=== PATIENT | male | born 1935 | race Caucasian/White ===

== ENCOUNTER 2017-05-25 22:53 | Inpatient (IN) | payer MEDICARE ==
[~2017-05-25] VITALS: Ht 172.7 cm; Wt 84.4 kg
[2017-05-25] MEDS ORDERED: GABA300C PO (23:24)
[2017-05-25] MEDS ORDERED: LOSA100T3 PO (23:24)
[2017-05-25] MEDS ORDERED: TAMS-12 PO (23:24)
[2017-05-25] MEDS ORDERED: ALBU2.5V13 IH (23:24)
[2017-05-25] MEDS ORDERED: METF500T PO (23:24)
[2017-05-25] MEDS ORDERED: GLUC1KIT IM (23:24)
[2017-05-25] MEDS ORDERED: HUM10VIA5 SQ (23:24)
[2017-05-25] MEDS ORDERED: LORA-259 PO (23:24)
[2017-05-25] MEDS ORDERED: DONE5TAB7 PO (23:24)
[2017-05-25] MEDS ORDERED: IPRA0.2S9 IH (23:24)
[2017-05-25] MEDS ORDERED: MIRT15TA7 PO (23:24)
[2017-05-25] MEDS ORDERED: PANT20TA2 PO (23:24)
[2017-05-25] MEDS ORDERED: ATOR20TA PO (23:24)
[2017-05-26 00:15] LABS: BASOPHILS % (AUTO) 0.4 % (0.0-2.0); EOSINOPHILS # (AUTO) 0.1 /CMM (0.0-0.7); EOSINOPHILS % (AUTO) 1.8 % (0.0-6.0); HEMATOCRIT 31 % (39-51); HEMOGLOBIN 10.1 g/dL (13.5-17.5); LYMPHOCYTES # (AUTO) 2.5 /CMM (0.8-4.8); LYMPHOCYTES % (AUTO) 33.3 % (20.0-44.0); MEAN CORPUSCULAR HEMOGLOBIN 28 PG (26.0-33.0); MEAN CORPUSCULAR HGB CONC 32 g/dl (31.0-36.0); MEAN CORPUSCULAR VOLUME 87 fL (80-96); MONOCYTES # (AUTO) 0.4 /CMM (0.1-1.30); MONOCYTES % (AUTO) 5.6 % (2.0-12.0); NEUTROPHILS # (AUTO) 4.4 /CMM (1.8-8.9); NEUTROPHILS % (AUTO) 58.9 % (43.0-81.0); PLATELET COUNT (AUTO) 197 /CMM (150-450); RDW COEFFICIENT OF VARIATION 13.6 (11.5-15.0); RED BLOOD CELL COUNT(AUTO) 3.61 MIL/uL (4.5-6.0); WHITE BLOOD COUNT (AUTO) 7.5 K/uL (4.3-11.0)
[2017-05-26 00:28] LABS: CALCIUM, SERUM 8.8 mg/dL (8.5-10.1); CARBON DIOXIDE 28 mmol/L (21-32); CHLORIDE 105 mmol/L (98-107); CREATININE 1.7 mg/dL (0.6-1.3); GLUCOSE 147 mg/dL (74-106); POTASSIUM 4.7 mmol/L (3.5-5.1); SODIUM SERUM 141 mmol/L (136-145); UREA NITROGEN, BLOOD 33 mg/dL (7-18)
[2017-05-26 00:33] LABS: ALANINE AMINOTRANSFERASE 21 U/L (12-78); ALBUMIN 3.2 g/dL (3.4-5.0); ALCOHOL, BLOOD < 3 mg/dL (0-0); ALKALINE PHOSPHATASE 66 U/L (46-116); ASPARTATE AMINOTRANSFERASE 16 U/L (15-37); BILIRUBIN,DIRECT 0.2 mg/dL (0.0-0.2); BILIRUBIN,TOTAL 0.7 mg/dL (0.2-1.0); TOTAL PROTEIN, SERUM 7.1 g/dL (6.4-8.2)
[2017-05-26 00:34] LABS: ACETAMINOPHEN 0 ug/ml (10-30); SALICYLATE 0.3 mg/dL (2.8-20.0)
[2017-05-26] MEDS ORDERED: MAGNESIUM HYDROXIDE 30 ML UDC PO PRN (02:00)
[2017-05-26] MEDS ORDERED: ACETAMINOPHEN 325 MG TABLET PO PRN (02:00)
[2017-05-26] MEDS ORDERED: MAG HYDROX/AL HYDROX/SIMETH 30 ML UDC PO PRN (02:00)
[2017-05-26 03:21] VITALS: BP 132/65
[2017-05-26 08:29] VITALS: BP 119/67
[2017-05-26] MEDS: risperiDONE-M 0.5 MG TAB.RAPDIS PO SCH (13:47)
[2017-05-26] MEDS: IPRATROPIUM NEB FS 0.5 MG/2.5 ML AMPUL.NEB IH SCH ×2 (15:30→21:03)
[2017-05-26] MEDS: ALBUTEROL FS 2.5 MG/0.5 ML VIAL.NEB IH SCH ×2 (15:30→21:03)
[2017-05-26 16:00] VITALS: BP 108/73
[2017-05-26] MEDS: METFORMIN 500 MG TABLET PO SCH (16:31)
[2017-05-26] MEDS: LORAZEPAM 0.5 MG TABLET PO PRN (16:31)
[2017-05-26] MEDS: GABAPENTIN 300 MG CAPSULE PO SCH (16:31)
[2017-05-26] MEDS: INSULIN NPH/REG 70/30 MIX INJ 100 UNIT/ML VIAL SQ SCH (17:00)
[2017-05-26] MEDS ORDERED: DEXTROSE 50%-WATER 50 ML DISP.SYRIN IV PRN (18:30)
[2017-05-26 19:57] VITALS: BP 120/67
[2017-05-26] MEDS: BLOOD SUGAR DIAGNOSTIC 1 EACH STRIP IN SCH (22:01)
[2017-05-26] MEDS: ATORVASTATIN 10 MG TABLET PO SCH (22:02)
[2017-05-26] MEDS: TAMSULOSIN 0.4 MG CAP.SR.24H PO SCH (22:02)
[2017-05-26] MEDS: TEMAZEPAM 7.5 MG CAPSULE PO PRN (22:04)
[2017-05-26] MEDS: INSULIN REGULAR, HUMAN 100 UNIT/ML 3 ML VIAL SQ PRN (22:19)
[2017-05-27] MEDS: ALBUTEROL FS 2.5 MG/0.5 ML VIAL.NEB IH SCH ×8 (00:16→22:51)
[2017-05-27] MEDS: IPRATROPIUM NEB FS 0.5 MG/2.5 ML AMPUL.NEB IH SCH ×8 (00:16→22:51)
[2017-05-27 07:18] LABS: CHOLESTEROL 107 mg/dL (<200); HDL CHOLESTEROL 56 mg/dL (40-60); LDL 43 mg/dL (0-99); TRIGLYCERIDES 55 mg/dL (30-150)
[2017-05-27 07:19] LABS: ALANINE AMINOTRANSFERASE 23 U/L (12-78); ALBUMIN 3.5 g/dL (3.4-5.0); ALKALINE PHOSPHATASE 67 U/L (46-116); ASPARTATE AMINOTRANSFERASE 20 U/L (15-37); BILIRUBIN,TOTAL 0.8 mg/dL (0.2-1.0); CARBON DIOXIDE 28 mmol/L (21-32); CHLORIDE 106 mmol/L (98-107); CREATININE 1.2 mg/dL (0.6-1.3); GLUCOSE 152 mg/dL (74-106); POTASSIUM 5.1 mmol/L (3.5-5.1); SODIUM SERUM 143 mmol/L (136-145); TOTAL PROTEIN, SERUM 7.7 g/dL (6.4-8.2); UREA NITROGEN, BLOOD 29 mg/dL (7-18)
[2017-05-27 07:20] LABS: HEMATOCRIT 31 % (39-51); HEMOGLOBIN 10.1 g/dL (13.5-17.5); LYMPHOCYTES % (AUTO) 29.3 % (20.0-44.0); MEAN CORPUSCULAR HEMOGLOBIN 28 PG (26.0-33.0); MEAN CORPUSCULAR HGB CONC 32 g/dl (31.0-36.0); MEAN CORPUSCULAR VOLUME 87 fL (80-96); MONOCYTES % (AUTO) 6.4 % (2.0-12.0); PLATELET COUNT (AUTO) 213 /CMM (150-450); RDW COEFFICIENT OF VARIATION 13.9 (11.5-15.0); WHITE BLOOD COUNT (AUTO) 7.2 K/uL (4.3-11.0)
[2017-05-27 07:21] LABS: BASOPHILS % (AUTO) 0.4 % (0.0-2.0); EOSINOPHILS # (AUTO) 0.1 /CMM (0.0-0.7); EOSINOPHILS % (AUTO) 0.9 % (0.0-6.0); LYMPHOCYTES # (AUTO) 2.1 /CMM (0.8-4.8); MONOCYTES # (AUTO) 0.5 /CMM (0.1-1.30); NEUTROPHILS # (AUTO) 4.5 /CMM (1.8-8.9)
[2017-05-27 08:20] VITALS: BP 107/53
[2017-05-27] MEDS: GABAPENTIN 300 MG CAPSULE PO SCH ×2 (08:41→16:21)
[2017-05-27] MEDS: BLOOD SUGAR DIAGNOSTIC 1 EACH STRIP IN SCH ×4 (08:41→22:14)
[2017-05-27] MEDS: risperiDONE-M 0.5 MG TAB.RAPDIS PO SCH (08:42)
[2017-05-27] MEDS: METFORMIN 500 MG TABLET PO SCH ×2 (08:42→16:21)
[2017-05-27] MEDS: LOSARTAN POTASSIUM 50 MG TABLET PO SCH (08:43)
[2017-05-27] MEDS: INSULIN REGULAR, HUMAN 100 UNIT/ML 3 ML VIAL SQ PRN ×4 (08:56→22:18)
[2017-05-27] MEDS: INSULIN NPH/REG 70/30 MIX INJ 100 UNIT/ML VIAL SQ SCH ×2 (11:10→17:15)
[2017-05-27 16:18] VITALS: BP 131/64
[2017-05-27 19:38] VITALS: BP 108/56
[2017-05-27] MEDS: TAMSULOSIN 0.4 MG CAP.SR.24H PO SCH (21:05)
[2017-05-27] MEDS: ATORVASTATIN 10 MG TABLET PO SCH (21:05)
[2017-05-27] MEDS: TEMAZEPAM 7.5 MG CAPSULE PO PRN (22:29)
[2017-05-28] MEDS: IPRATROPIUM NEB FS 0.5 MG/2.5 ML AMPUL.NEB IH SCH ×6 (02:57→23:18)
[2017-05-28] MEDS: ALBUTEROL FS 2.5 MG/0.5 ML VIAL.NEB IH SCH ×6 (02:58→23:18)
[2017-05-28] MEDS: BLOOD SUGAR DIAGNOSTIC 1 EACH STRIP IN SCH ×4 (07:30→22:01)
[2017-05-28 08:26] VITALS: BP 112/58
[2017-05-28] MEDS: Z GUARD REMEDY 2 OZ OINT TP SCH (09:00)
[2017-05-28] MEDS: LOSARTAN POTASSIUM 50 MG TABLET PO SCH (09:00)
[2017-05-28] MEDS: INSULIN REGULAR, HUMAN 100 UNIT/ML 3 ML VIAL SQ PRN ×3 (09:00→12:23)
[2017-05-28] MEDS: GABAPENTIN 300 MG CAPSULE PO SCH ×2 (09:49→16:47)
[2017-05-28] MEDS: METFORMIN 500 MG TABLET PO SCH ×2 (09:50→16:47)
[2017-05-28] MEDS: INSULIN NPH/REG 70/30 MIX INJ 100 UNIT/ML VIAL SQ SCH ×2 (09:58→17:00)
[2017-05-28] MEDS: LORAZEPAM 0.5 MG TABLET PO PRN (12:53)
[2017-05-28 15:51] VITALS: BP 100/62
[2017-05-28] MEDS ORDERED: risperiDONE-M 0.5 MG TAB.RAPDIS PO ONE ×2 (17:30→18:30)
[2017-05-28 20:31] VITALS: BP 102/52
[2017-05-28] MEDS ORDERED: TRAZODONE 50 MG TABLET PO SCH (22:00)
[2017-05-28] MEDS: TAMSULOSIN 0.4 MG CAP.SR.24H PO SCH (22:02)
[2017-05-28] MEDS: ATORVASTATIN 10 MG TABLET PO SCH (22:04)
[2017-05-29] MEDS: IPRATROPIUM NEB FS 0.5 MG/2.5 ML AMPUL.NEB IH SCH ×6 (03:30→23:30)
[2017-05-29] MEDS: ALBUTEROL FS 2.5 MG/0.5 ML VIAL.NEB IH SCH ×6 (03:30→23:30)
[2017-05-29] MEDS: GABAPENTIN 300 MG CAPSULE PO SCH ×2 (08:44→17:07)
[2017-05-29] MEDS: METFORMIN 500 MG TABLET PO SCH ×2 (08:44→17:07)
[2017-05-29] MEDS: risperiDONE-M 0.5 MG TAB.RAPDIS PO SCH (08:45)
[2017-05-29] MEDS: LOSARTAN POTASSIUM 50 MG TABLET PO SCH (08:45)
[2017-05-29] MEDS: INSULIN NPH/REG 70/30 MIX INJ 100 UNIT/ML VIAL SQ SCH ×2 (08:51→17:47)
[2017-05-29] MEDS: INSULIN REGULAR, HUMAN 100 UNIT/ML 3 ML VIAL SQ PRN ×3 (08:52→21:43)
[2017-05-29] MEDS: BLOOD SUGAR DIAGNOSTIC 1 EACH STRIP IN SCH ×4 (08:54→21:27)
[2017-05-29 09:25] VITALS: BP 142/57
[2017-05-29] MEDS: Z GUARD REMEDY 2 OZ OINT TP SCH (09:30)
[2017-05-29] MEDS: LORAZEPAM 0.5 MG TABLET PO PRN (14:44)
[2017-05-29 16:00] VITALS: BP 129/56
[2017-05-29 20:00] VITALS: BP 120/66
[2017-05-29] MEDS: TAMSULOSIN 0.4 MG CAP.SR.24H PO SCH (21:32)
[2017-05-29] MEDS: ATORVASTATIN 10 MG TABLET PO SCH (21:32)
[2017-05-29] MEDS: TRAZODONE 50 MG TABLET PO SCH (21:32)
[2017-05-29] MEDS: TEMAZEPAM 7.5 MG CAPSULE PO PRN (21:32)
[2017-05-30] MEDS: ALBUTEROL FS 2.5 MG/0.5 ML VIAL.NEB IH SCH ×6 (03:30→23:30)
[2017-05-30] MEDS: IPRATROPIUM NEB FS 0.5 MG/2.5 ML AMPUL.NEB IH SCH ×6 (03:30→23:30)
[2017-05-30 08:00] VITALS: BP 124/53
[2017-05-30] MEDS: BLOOD SUGAR DIAGNOSTIC 1 EACH STRIP IN SCH ×4 (08:18→21:48)
[2017-05-30] MEDS: risperiDONE-M 0.5 MG TAB.RAPDIS PO SCH (09:04)
[2017-05-30] MEDS: LOSARTAN POTASSIUM 50 MG TABLET PO SCH (09:04)
[2017-05-30] MEDS: METFORMIN 500 MG TABLET PO SCH ×2 (09:04→17:05)
[2017-05-30] MEDS: GABAPENTIN 300 MG CAPSULE PO SCH ×2 (09:04→17:05)
[2017-05-30] MEDS: Z GUARD REMEDY 2 OZ OINT TP SCH (09:05)
[2017-05-30] MEDS: INSULIN NPH/REG 70/30 MIX INJ 100 UNIT/ML VIAL SQ SCH ×2 (09:08→17:38)
[2017-05-30] MEDS: INSULIN REGULAR, HUMAN 100 UNIT/ML 3 ML VIAL SQ PRN ×2 (09:10→12:39)
[2017-05-30 16:00] VITALS: BP 147/65
[2017-05-30 20:00] VITALS: BP 115/55
[2017-05-30] MEDS: TRAZODONE 50 MG TABLET PO SCH (21:48)
[2017-05-30] MEDS: ATORVASTATIN 10 MG TABLET PO SCH (21:48)
[2017-05-30] MEDS: TAMSULOSIN 0.4 MG CAP.SR.24H PO SCH (21:48)
[2017-05-31] MEDS: IPRATROPIUM NEB FS 0.5 MG/2.5 ML AMPUL.NEB IH SCH ×7 (02:51→22:35)
[2017-05-31] MEDS: ALBUTEROL FS 2.5 MG/0.5 ML VIAL.NEB IH SCH ×7 (02:51→22:35)
[2017-05-31] MEDS: BLOOD SUGAR DIAGNOSTIC 1 EACH STRIP IN SCH ×4 (07:30→22:22)
[2017-05-31 08:00] VITALS: BP 134/74
[2017-05-31] MEDS: GABAPENTIN 300 MG CAPSULE PO SCH ×2 (08:32→16:28)
[2017-05-31] MEDS: risperiDONE-M 0.5 MG TAB.RAPDIS PO SCH (08:32)
[2017-05-31] MEDS: METFORMIN 500 MG TABLET PO SCH ×2 (08:32→16:28)
[2017-05-31] MEDS: LOSARTAN POTASSIUM 50 MG TABLET PO SCH (08:33)
[2017-05-31 08:41] LABS: BASOPHILS % (AUTO) 0.4 % (0.0-2.0); EOSINOPHILS # (AUTO) 0.1 /CMM (0.0-0.7); EOSINOPHILS % (AUTO) 2.1 % (0.0-6.0); HEMATOCRIT 30 % (39-51); LYMPHOCYTES # (AUTO) 3.1 /CMM (0.8-4.8); LYMPHOCYTES % (AUTO) 44.1 % (20.0-44.0); MEAN CORPUSCULAR HEMOGLOBIN 29 PG (26.0-33.0); MEAN CORPUSCULAR HGB CONC 33 g/dl (31.0-36.0); MEAN CORPUSCULAR VOLUME 87 fL (80-96); MONOCYTES # (AUTO) 0.5 /CMM (0.1-1.30); MONOCYTES % (AUTO) 6.6 % (2.0-12.0); NEUTROPHILS # (AUTO) 3.3 /CMM (1.8-8.9); NEUTROPHILS % (AUTO) 46.8 % (43.0-81.0); PLATELET COUNT (AUTO) 202 /CMM (150-450); RDW COEFFICIENT OF VARIATION 13.7 (11.5-15.0); RED BLOOD CELL COUNT(AUTO) 3.45 MIL/uL (4.5-6.0)
[2017-05-31] MEDS: INSULIN NPH/REG 70/30 MIX INJ 100 UNIT/ML VIAL SQ SCH ×2 (08:42→17:00)
[2017-05-31] MEDS: Z GUARD REMEDY 2 OZ OINT TP SCH (08:43)
[2017-05-31 08:59] LABS: CALCIUM, SERUM 9.1 mg/dL (8.5-10.1); CARBON DIOXIDE 29 mmol/L (21-32); CHLORIDE 107 mmol/L (98-107); GLUCOSE 198 mg/dL (74-106); MAGNESIUM 1.3 mg/dL (1.8-2.4); PHOSPHORUS 3.5 mg/dL (2.5-4.9); POTASSIUM 4.4 mmol/L (3.5-5.1); SODIUM SERUM 143 mmol/L (136-145); UREA NITROGEN, BLOOD 30 mg/dL (7-18)
[2017-05-31] MEDS: INSULIN REGULAR, HUMAN 100 UNIT/ML 3 ML VIAL SQ PRN ×2 (12:41→22:24)
[2017-05-31 15:35] VITALS: BP 120/60
[2017-05-31 20:00] VITALS: BP_SYST 127; BP_DIAS 68; BP_DIAS 88
[2017-05-31] MEDS: TRAZODONE 50 MG TABLET PO SCH (22:30)
[2017-05-31] MEDS: TAMSULOSIN 0.4 MG CAP.SR.24H PO SCH (22:30)
[2017-05-31] MEDS: ATORVASTATIN 10 MG TABLET PO SCH (22:30)
[2017-06-01] MEDS: LORAZEPAM 0.5 MG TABLET PO PRN (00:27)
[2017-06-01] MEDS: ALBUTEROL FS 2.5 MG/0.5 ML VIAL.NEB IH SCH ×6 (03:16→22:54)
[2017-06-01] MEDS: IPRATROPIUM NEB FS 0.5 MG/2.5 ML AMPUL.NEB IH SCH ×6 (03:16→22:54)
[2017-06-01] MEDS: BLOOD SUGAR DIAGNOSTIC 1 EACH STRIP IN SCH ×4 (07:53→21:35)
[2017-06-01] MEDS: INSULIN REGULAR, HUMAN 100 UNIT/ML 3 ML VIAL SQ PRN ×2 (07:57→16:40)
[2017-06-01] MEDS: LOSARTAN POTASSIUM 50 MG TABLET PO SCH (08:03)
[2017-06-01] MEDS: risperiDONE-M 0.5 MG TAB.RAPDIS PO SCH (08:04)
[2017-06-01] MEDS: METFORMIN 500 MG TABLET PO SCH ×2 (08:04→16:39)
[2017-06-01] MEDS: GABAPENTIN 300 MG CAPSULE PO SCH ×2 (08:04→16:38)
[2017-06-01] MEDS: INSULIN NPH/REG 70/30 MIX INJ 100 UNIT/ML VIAL SQ SCH ×2 (08:05→16:41)
[2017-06-01 08:18] VITALS: BP 105/43
[2017-06-01] MEDS: Z GUARD REMEDY 2 OZ OINT TP SCH (11:01)
[2017-06-01 15:57] VITALS: BP 100/58
[2017-06-01 20:10] VITALS: BP 111/47
[2017-06-01] MEDS: TAMSULOSIN 0.4 MG CAP.SR.24H PO SCH (21:35)
[2017-06-01] MEDS: ATORVASTATIN 10 MG TABLET PO SCH (21:35)
[2017-06-01] MEDS: TRAZODONE 50 MG TABLET PO SCH (21:35)
[2017-06-02] MEDS: LORAZEPAM 0.5 MG TABLET PO PRN ×2 (01:34→23:02)
[2017-06-02] MEDS: IPRATROPIUM NEB FS 0.5 MG/2.5 ML AMPUL.NEB IH SCH ×6 (03:27→23:36)
[2017-06-02] MEDS: ALBUTEROL FS 2.5 MG/0.5 ML VIAL.NEB IH SCH ×6 (03:27→23:36)
[2017-06-02 08:00] VITALS: BP 113/59
[2017-06-02] MEDS: BLOOD SUGAR DIAGNOSTIC 1 EACH STRIP IN SCH ×4 (08:18→21:37)
[2017-06-02] MEDS: GABAPENTIN 300 MG CAPSULE PO SCH ×2 (08:19→17:07)
[2017-06-02] MEDS: LOSARTAN POTASSIUM 50 MG TABLET PO SCH (08:20)
[2017-06-02] MEDS: risperiDONE-M 0.5 MG TAB.RAPDIS PO SCH (08:20)
[2017-06-02] MEDS: METFORMIN 500 MG TABLET PO SCH ×2 (08:21→17:07)
[2017-06-02] MEDS: Z GUARD REMEDY 2 OZ OINT TP SCH (08:21)
[2017-06-02] MEDS: INSULIN NPH/REG 70/30 MIX INJ 100 UNIT/ML VIAL SQ SCH ×2 (08:24→17:26)
[2017-06-02] MEDS: INSULIN REGULAR, HUMAN 100 UNIT/ML 3 ML VIAL SQ PRN ×2 (08:26→17:25)
[2017-06-02 15:59] VITALS: BP 142/57
[2017-06-02 20:53] VITALS: BP 124/79
[2017-06-02] MEDS: ATORVASTATIN 10 MG TABLET PO SCH (21:06)
[2017-06-02] MEDS: TAMSULOSIN 0.4 MG CAP.SR.24H PO SCH (21:06)
[2017-06-02] MEDS: TRAZODONE 50 MG TABLET PO SCH (21:06)
[2017-06-03] MEDS: IPRATROPIUM NEB FS 0.5 MG/2.5 ML AMPUL.NEB IH SCH ×6 (03:30→23:08)
[2017-06-03] MEDS: ALBUTEROL FS 2.5 MG/0.5 ML VIAL.NEB IH SCH ×6 (03:30→23:08)
[2017-06-03 08:00] VITALS: BP 100/57
[2017-06-03] MEDS: BLOOD SUGAR DIAGNOSTIC 1 EACH STRIP IN SCH ×4 (08:24→22:07)
[2017-06-03] MEDS: INSULIN REGULAR, HUMAN 100 UNIT/ML 3 ML VIAL SQ PRN ×2 (08:26→22:10)
[2017-06-03] MEDS: INSULIN NPH/REG 70/30 MIX INJ 100 UNIT/ML VIAL SQ SCH ×2 (08:28→17:04)
[2017-06-03] MEDS: risperiDONE-M 0.5 MG TAB.RAPDIS PO SCH ×2 (08:48→21:32)
[2017-06-03] MEDS: LOSARTAN POTASSIUM 50 MG TABLET PO SCH (08:49)
[2017-06-03] MEDS: METFORMIN 500 MG TABLET PO SCH ×2 (08:49→16:47)
[2017-06-03] MEDS: Z GUARD REMEDY 2 OZ OINT TP SCH (08:49)
[2017-06-03] MEDS: GABAPENTIN 300 MG CAPSULE PO SCH ×2 (08:49→16:47)
[2017-06-03 16:05] VITALS: BP 134/51
[2017-06-03 20:00] VITALS: BP 130/62
[2017-06-03] MEDS: TRAZODONE 50 MG TABLET PO SCH (21:31)
[2017-06-03] MEDS: TAMSULOSIN 0.4 MG CAP.SR.24H PO SCH (21:31)
[2017-06-03] MEDS: MIRTAZAPINE SOLUTAB 15 MG/UDTABLET TAB.RAPDIS PO SCH (21:31)
[2017-06-03] MEDS: ATORVASTATIN 10 MG TABLET PO SCH (21:31)
[2017-06-04] MEDS: ALBUTEROL FS 2.5 MG/0.5 ML VIAL.NEB IH SCH ×6 (02:31→23:10)
[2017-06-04] MEDS: IPRATROPIUM NEB FS 0.5 MG/2.5 ML AMPUL.NEB IH SCH ×6 (02:31→23:10)
[2017-06-04] MEDS: BLOOD SUGAR DIAGNOSTIC 1 EACH STRIP IN SCH ×4 (07:30→21:28)
[2017-06-04 08:00] VITALS: BP 132/64
[2017-06-04] MEDS: METFORMIN 500 MG TABLET PO SCH ×2 (08:21→16:17)
[2017-06-04] MEDS: LOSARTAN POTASSIUM 50 MG TABLET PO SCH (08:21)
[2017-06-04] MEDS: GABAPENTIN 300 MG CAPSULE PO SCH ×2 (08:21→16:17)
[2017-06-04] MEDS: INSULIN NPH/REG 70/30 MIX INJ 100 UNIT/ML VIAL SQ SCH ×2 (08:22→17:42)
[2017-06-04] MEDS: INSULIN REGULAR, HUMAN 100 UNIT/ML 3 ML VIAL SQ PRN ×2 (13:07→17:39)
[2017-06-04 16:00] VITALS: BP 118/55
[2017-06-04] MEDS: Z GUARD REMEDY 2 OZ OINT TP SCH (16:14)
[2017-06-04 20:04] VITALS: BP 111/56
[2017-06-04] MEDS: MIRTAZAPINE SOLUTAB 15 MG/UDTABLET TAB.RAPDIS PO SCH (22:02)
[2017-06-04] MEDS: risperiDONE-M 0.5 MG TAB.RAPDIS PO SCH (22:02)
[2017-06-04] MEDS: ATORVASTATIN 10 MG TABLET PO SCH (22:02)
[2017-06-04] MEDS: TAMSULOSIN 0.4 MG CAP.SR.24H PO SCH (22:02)
[2017-06-04] MEDS: ZOLPIDEM TARTRATE 5 MG TABLET PO PRN (23:28)
[2017-06-05] MEDS: ALBUTEROL FS 2.5 MG/0.5 ML VIAL.NEB IH SCH ×6 (03:30→23:30)
[2017-06-05] MEDS: IPRATROPIUM NEB FS 0.5 MG/2.5 ML AMPUL.NEB IH SCH ×6 (03:30→23:30)
[2017-06-05 08:22] LABS: BASOPHILS % (AUTO) 0.4 % (0.0-2.0); EOSINOPHILS # (AUTO) 0.1 /CMM (0.0-0.7); EOSINOPHILS % (AUTO) 1.5 % (0.0-6.0); HEMATOCRIT 29 % (39-51); HEMOGLOBIN 9.3 g/dL (13.5-17.5); LYMPHOCYTES # (AUTO) 2.8 /CMM (0.8-4.8); LYMPHOCYTES % (AUTO) 29.3 % (20.0-44.0); MEAN CORPUSCULAR HEMOGLOBIN 28 PG (26.0-33.0); MEAN CORPUSCULAR HGB CONC 33 g/dl (31.0-36.0); MEAN CORPUSCULAR VOLUME 86 fL (80-96); MONOCYTES # (AUTO) 0.7 /CMM (0.1-1.30); MONOCYTES % (AUTO) 7.8 % (2.0-12.0); NEUTROPHILS # (AUTO) 5.8 /CMM (1.8-8.9); PLATELET COUNT (AUTO) 229 /CMM (150-450); RDW COEFFICIENT OF VARIATION 14.1 (11.5-15.0); RED BLOOD CELL COUNT(AUTO) 3.33 MIL/uL (4.5-6.0); WHITE BLOOD COUNT (AUTO) 9.4 K/uL (4.3-11.0)
[2017-06-05] MEDS: INSULIN NPH/REG 70/30 MIX INJ 100 UNIT/ML VIAL SQ SCH ×2 (08:24→17:00)
[2017-06-05] MEDS: BLOOD SUGAR DIAGNOSTIC 1 EACH STRIP IN SCH ×4 (08:24→21:34)
[2017-06-05] MEDS: METFORMIN 500 MG TABLET PO SCH ×3 (08:26→16:59)
[2017-06-05] MEDS: LOSARTAN POTASSIUM 50 MG TABLET PO SCH (08:26)
[2017-06-05] MEDS: GABAPENTIN 300 MG CAPSULE PO SCH ×3 (08:26→16:59)
[2017-06-05] MEDS: Z GUARD REMEDY 2 OZ OINT TP SCH (08:29)
[2017-06-05 08:35] VITALS: BP 104/75
[2017-06-05 08:36] LABS: CARBON DIOXIDE 27 mmol/L (21-32); CHLORIDE 105 mmol/L (98-107); CREATININE 1.7 mg/dL (0.6-1.3); GLUCOSE 118 mg/dL (74-106); MAGNESIUM 1.6 mg/dL (1.8-2.4); PHOSPHORUS 4.2 mg/dL (2.5-4.9); POTASSIUM 4.2 mmol/L (3.5-5.1); SODIUM SERUM 141 mmol/L (136-145); UREA NITROGEN, BLOOD 62 mg/dL (7-18)
[2017-06-05] MEDS ORDERED: MAGNESIUM OXIDE 400 MG TABLET PO ONE (12:00)
[2017-06-05 15:29] VITALS: BP 100/54
[2017-06-05 17:11] LABS: IRON, SERUM 31 ug/dl (50-175); TOTAL IRON BINDING CAPACITY 166 ug/dl (250-450)
[2017-06-05 17:15] LABS: FERRITIN 315 ng/mL (8-388)
[2017-06-05 20:00] VITALS: BP 106/65
[2017-06-05] MEDS: INSULIN REGULAR, HUMAN 100 UNIT/ML 3 ML VIAL SQ PRN (22:18)
[2017-06-05] MEDS: ATORVASTATIN 10 MG TABLET PO SCH (22:19)
[2017-06-05] MEDS: TAMSULOSIN 0.4 MG CAP.SR.24H PO SCH (22:20)
[2017-06-05] MEDS: MIRTAZAPINE SOLUTAB 15 MG/UDTABLET TAB.RAPDIS PO SCH (22:20)
[2017-06-05] MEDS: ZOLPIDEM TARTRATE 5 MG TABLET PO PRN (22:20)
[2017-06-05] MEDS: risperiDONE-M 0.5 MG TAB.RAPDIS PO SCH (22:20)
[2017-06-06] MEDS: ALBUTEROL FS 2.5 MG/0.5 ML VIAL.NEB IH SCH ×6 (03:30→23:30)
[2017-06-06] MEDS: IPRATROPIUM NEB FS 0.5 MG/2.5 ML AMPUL.NEB IH SCH ×6 (03:30→23:30)
[2017-06-06 07:57] LABS: BASOPHILS % (AUTO) 0.3 % (0.0-2.0); EOSINOPHILS % (AUTO) 0.2 % (0.0-6.0); HEMATOCRIT 31 % (39-51); HEMOGLOBIN 10.2 g/dL (13.5-17.5); LYMPHOCYTES # (AUTO) 2.3 /CMM (0.8-4.8); LYMPHOCYTES % (AUTO) 22.4 % (20.0-44.0); MEAN CORPUSCULAR HEMOGLOBIN 28 PG (26.0-33.0); MEAN CORPUSCULAR HGB CONC 33 g/dl (31.0-36.0); MEAN CORPUSCULAR VOLUME 87 fL (80-96); MONOCYTES # (AUTO) 0.5 /CMM (0.1-1.30); NEUTROPHILS # (AUTO) 7.3 /CMM (1.8-8.9); NEUTROPHILS % (AUTO) 72.1 % (43.0-81.0); PLATELET COUNT (AUTO) 253 /CMM (150-450); RDW COEFFICIENT OF VARIATION 13.6 (11.5-15.0); WHITE BLOOD COUNT (AUTO) 10.1 K/uL (4.3-11.0)
[2017-06-06 08:00] VITALS: BP 126/73
[2017-06-06 08:17] LABS: CALCIUM, SERUM 9.4 mg/dL (8.5-10.1); CARBON DIOXIDE 21 mmol/L (21-32); CHLORIDE 104 mmol/L (98-107); GLUCOSE 208 mg/dL (74-106); POTASSIUM 5.4 mmol/L (3.5-5.1); SODIUM SERUM 142 mmol/L (136-145); UREA NITROGEN, BLOOD 72 mg/dL (7-18)
[2017-06-06] MEDS: BLOOD SUGAR DIAGNOSTIC 1 EACH STRIP IN SCH ×4 (08:41→22:58)
[2017-06-06] MEDS ORDERED: LOSARTAN POTASSIUM 50 MG TABLET PO SCH (09:00)
[2017-06-06] MEDS: GABAPENTIN 300 MG CAPSULE PO SCH ×2 (09:22→17:07)
[2017-06-06] MEDS: METFORMIN 500 MG TABLET PO SCH ×2 (09:22→17:07)
[2017-06-06] MEDS: Z GUARD REMEDY 2 OZ OINT TP SCH (09:23)
[2017-06-06] MEDS: INSULIN NPH/REG 70/30 MIX INJ 100 UNIT/ML VIAL SQ SCH ×2 (09:43→18:17)
[2017-06-06] MEDS: INSULIN REGULAR, HUMAN 100 UNIT/ML 3 ML VIAL SQ PRN ×3 (09:46→22:59)
[2017-06-06] MEDS ORDERED: IV NS 0.9% 1,000 ML IV PRN (14:00)
[2017-06-06] MEDS ORDERED: SODIUM POLYSTYRENE SULFONATE 15 G/60 ML BOTTLE PO ONE (14:00)
[2017-06-06 16:00] VITALS: BP 98/54
[2017-06-06 20:00] VITALS: BP 105/65
[2017-06-06] MEDS: TAMSULOSIN 0.4 MG CAP.SR.24H PO SCH (21:40)
[2017-06-06] MEDS: risperiDONE-M 0.5 MG TAB.RAPDIS PO SCH (21:40)
[2017-06-06] MEDS: MIRTAZAPINE SOLUTAB 15 MG/UDTABLET TAB.RAPDIS PO SCH (21:41)
[2017-06-06] MEDS: ATORVASTATIN 10 MG TABLET PO SCH (21:41)
[2017-06-06] MEDS: ZOLPIDEM TARTRATE 5 MG TABLET PO PRN (23:00)
[2017-06-07] MEDS: ALBUTEROL FS 2.5 MG/0.5 ML VIAL.NEB IH SCH ×6 (03:28→23:57)
[2017-06-07] MEDS: IPRATROPIUM NEB FS 0.5 MG/2.5 ML AMPUL.NEB IH SCH ×6 (03:28→23:57)
[2017-06-07 07:28] LABS: BASOPHILS % (AUTO) 0.2 % (0.0-2.0); EOSINOPHILS # (AUTO) 0.1 /CMM (0.0-0.7); EOSINOPHILS % (AUTO) 0.6 % (0.0-6.0); HEMATOCRIT 32 % (39-51); HEMOGLOBIN 10.3 g/dL (13.5-17.5); LYMPHOCYTES # (AUTO) 3.7 /CMM (0.8-4.8); LYMPHOCYTES % (AUTO) 32.8 % (20.0-44.0); MEAN CORPUSCULAR HEMOGLOBIN 28 PG (26.0-33.0); MEAN CORPUSCULAR HGB CONC 33 g/dl (31.0-36.0); MEAN CORPUSCULAR VOLUME 87 fL (80-96); MONOCYTES # (AUTO) 0.6 /CMM (0.1-1.30); MONOCYTES % (AUTO) 5.1 % (2.0-12.0); NEUTROPHILS # (AUTO) 6.9 /CMM (1.8-8.9); NEUTROPHILS % (AUTO) 61.3 % (43.0-81.0); PLATELET COUNT (AUTO) 277 /CMM (150-450); RDW COEFFICIENT OF VARIATION 13.6 (11.5-15.0); RED BLOOD CELL COUNT(AUTO) 3.65 MIL/uL (4.5-6.0); WHITE BLOOD COUNT (AUTO) 11.2 K/uL (4.3-11.0)
[2017-06-07 07:51] LABS: CALCIUM, SERUM 8.9 mg/dL (8.5-10.1); CARBON DIOXIDE 27 mmol/L (21-32); CHLORIDE 105 mmol/L (98-107); CREATININE 1.9 mg/dL (0.6-1.3); GLUCOSE 130 mg/dL (74-106); MAGNESIUM 1.6 mg/dL (1.8-2.4); PHOSPHORUS 4.4 mg/dL (2.5-4.9); POTASSIUM 3.8 mmol/L (3.5-5.1); SODIUM SERUM 146 mmol/L (136-145); UREA NITROGEN, BLOOD 73 mg/dL (7-18)
[2017-06-07] MEDS: GABAPENTIN 300 MG CAPSULE PO SCH ×2 (08:42→16:56)
[2017-06-07] MEDS: BLOOD SUGAR DIAGNOSTIC 1 EACH STRIP IN SCH ×4 (08:42→22:04)
[2017-06-07] MEDS: METFORMIN 500 MG TABLET PO SCH (08:42)
[2017-06-07] MEDS: MEGESTROL ACETATE 40 MG TABLET PO SCH (08:42)
[2017-06-07] MEDS: Z GUARD REMEDY 2 OZ OINT TP SCH (09:11)
[2017-06-07] MEDS: INSULIN NPH/REG 70/30 MIX INJ 100 UNIT/ML VIAL SQ SCH ×2 (09:29→17:00)
[2017-06-07] MEDS ORDERED: MAGNESIUM OXIDE 400 MG TABLET PO ONE (10:00)
[2017-06-07 16:00] VITALS: BP 111/52
[2017-06-07 20:00] VITALS: BP 126/55
[2017-06-07] MEDS: ATORVASTATIN 10 MG TABLET PO SCH (21:23)
[2017-06-07] MEDS: TAMSULOSIN 0.4 MG CAP.SR.24H PO SCH (21:23)
[2017-06-07] MEDS: MIRTAZAPINE SOLUTAB 15 MG/UDTABLET TAB.RAPDIS PO SCH (21:24)
[2017-06-07] MEDS: risperiDONE-M 0.5 MG TAB.RAPDIS PO SCH (21:24)
[2017-06-07] MEDS: ZOLPIDEM TARTRATE 5 MG TABLET PO PRN (21:59)
[2017-06-08] MEDS: LORAZEPAM 0.5 MG TABLET PO PRN (00:28)
[2017-06-08] MEDS: IPRATROPIUM NEB FS 0.5 MG/2.5 ML AMPUL.NEB IH SCH ×6 (02:58→23:30)
[2017-06-08] MEDS: ALBUTEROL FS 2.5 MG/0.5 ML VIAL.NEB IH SCH ×6 (02:59→23:30)
[2017-06-08 07:19] LABS: BASOPHILS % (AUTO) 0.4 % (0.0-2.0); EOSINOPHILS # (AUTO) 0.1 /CMM (0.0-0.7); EOSINOPHILS % (AUTO) 0.7 % (0.0-6.0); HEMATOCRIT 31 % (39-51); HEMOGLOBIN 10.1 g/dL (13.5-17.5); LYMPHOCYTES # (AUTO) 3.2 /CMM (0.8-4.8); LYMPHOCYTES % (AUTO) 30.2 % (20.0-44.0); MEAN CORPUSCULAR HEMOGLOBIN 28 PG (26.0-33.0); MEAN CORPUSCULAR HGB CONC 33 g/dl (31.0-36.0); MEAN CORPUSCULAR VOLUME 86 fL (80-96); MONOCYTES # (AUTO) 0.6 /CMM (0.1-1.30); MONOCYTES % (AUTO) 5.5 % (2.0-12.0); NEUTROPHILS # (AUTO) 6.8 /CMM (1.8-8.9); NEUTROPHILS % (AUTO) 63.2 % (43.0-81.0); PLATELET COUNT (AUTO) 263 /CMM (150-450); RDW COEFFICIENT OF VARIATION 13.8 (11.5-15.0); RED BLOOD CELL COUNT(AUTO) 3.62 MIL/uL (4.5-6.0); WHITE BLOOD COUNT (AUTO) 10.7 K/uL (4.3-11.0)
[2017-06-08 07:43] LABS: ALANINE AMINOTRANSFERASE 25 U/L (12-78); ALBUMIN 3.3 g/dL (3.4-5.0); ALKALINE PHOSPHATASE 81 U/L (46-116); ASPARTATE AMINOTRANSFERASE 30 U/L (15-37); BILIRUBIN,TOTAL 0.8 mg/dL (0.2-1.0); CALCIUM, SERUM 8.9 mg/dL (8.5-10.1); CARBON DIOXIDE 25 mmol/L (21-32); CHLORIDE 105 mmol/L (98-107); CREATININE 1.4 mg/dL (0.6-1.3); GLUCOSE 136 mg/dL (74-106); MAGNESIUM 1.6 mg/dL (1.8-2.4); PHOSPHORUS 3.3 mg/dL (2.5-4.9); POTASSIUM 3.6 mmol/L (3.5-5.1); SODIUM SERUM 143 mmol/L (136-145); TOTAL PROTEIN, SERUM 7.4 g/dL (6.4-8.2); UREA NITROGEN, BLOOD 59 mg/dL (7-18)
[2017-06-08 08:00] VITALS: BP 124/74
[2017-06-08] MEDS: BLOOD SUGAR DIAGNOSTIC 1 EACH STRIP IN SCH ×4 (08:17→22:04)
[2017-06-08] MEDS: GABAPENTIN 300 MG CAPSULE PO SCH ×2 (08:17→16:47)
[2017-06-08] MEDS: MEGESTROL ACETATE 40 MG TABLET PO SCH (08:17)
[2017-06-08] MEDS: Z GUARD REMEDY 2 OZ OINT TP SCH (08:33)
[2017-06-08] MEDS: INSULIN NPH/REG 70/30 MIX INJ 100 UNIT/ML VIAL SQ SCH ×2 (08:34→17:15)
[2017-06-08] MEDS: INSULIN REGULAR, HUMAN 100 UNIT/ML 3 ML VIAL SQ PRN ×3 (08:35→22:08)
[2017-06-08] MEDS ORDERED: MAGNESIUM OXIDE 400 MG TABLET PO ONE ×2 (13:00→13:30)
[2017-06-08 15:57] VITALS: BP 114/71
[2017-06-08 20:08] VITALS: BP 127/54
[2017-06-08] MEDS: ATORVASTATIN 10 MG TABLET PO SCH (21:43)
[2017-06-08] MEDS: MIRTAZAPINE SOLUTAB 15 MG/UDTABLET TAB.RAPDIS PO SCH (21:43)
[2017-06-08] MEDS: risperiDONE-M 0.5 MG TAB.RAPDIS PO SCH (21:44)
[2017-06-08] MEDS: ZOLPIDEM TARTRATE 5 MG TABLET PO PRN (21:44)
[2017-06-08] MEDS: TAMSULOSIN 0.4 MG CAP.SR.24H PO SCH (21:44)
[2017-06-09] MEDS: ALBUTEROL FS 2.5 MG/0.5 ML VIAL.NEB IH SCH ×4 (03:30→15:23)
[2017-06-09] MEDS: IPRATROPIUM NEB FS 0.5 MG/2.5 ML AMPUL.NEB IH SCH ×4 (03:30→15:23)
[2017-06-09 06:40] LABS: CALCIUM, SERUM 8.9 mg/dL (8.5-10.1); CARBON DIOXIDE 26 mmol/L (21-32); CHLORIDE 105 mmol/L (98-107); CREATININE 1.2 mg/dL (0.6-1.3); GLUCOSE 165 mg/dL (74-106); MAGNESIUM 1.8 mg/dL (1.8-2.4); POTASSIUM 3.8 mmol/L (3.5-5.1); SODIUM SERUM 142 mmol/L (136-145); UREA NITROGEN, BLOOD 54 mg/dL (7-18)
[2017-06-09] MEDS: BLOOD SUGAR DIAGNOSTIC 1 EACH STRIP IN SCH ×2 (08:21→12:40)
[2017-06-09 08:22] VITALS: BP 118/54
[2017-06-09] MEDS: INSULIN REGULAR, HUMAN 100 UNIT/ML 3 ML VIAL SQ PRN (08:22)
[2017-06-09] MEDS: MEGESTROL ACETATE 40 MG TABLET PO SCH (08:23)
[2017-06-09] MEDS: GABAPENTIN 300 MG CAPSULE PO SCH (08:23)
[2017-06-09] MEDS: INSULIN NPH/REG 70/30 MIX INJ 100 UNIT/ML VIAL SQ SCH (08:26)
[2017-06-09] MEDS: Z GUARD REMEDY 2 OZ OINT TP SCH (08:27)
[2017-06-09 09:14] LABS: CALCITRIOL VIT D,1, 25 DIHYDRO 22.6 pg/mL (19.9-79.3)
== END 2017-06-09 15:15 | DRG 885 ==
LOC: ER 22:57 → GPS 05-26 01:11
PROVIDERS: ADMIT Psychiatry & Neurology Psychiatry; ATTEND Internal Medicine
DX: F29 Unspecified psychosis not due to a substance or known physiological condition (principal); N17.0 Acute kidney failure with tubular necrosis; N18.9 Chronic kidney disease, unspecified; E11.65 Type 2 diabetes mellitus with hyperglycemia; F03.91 Unspecified dementia, unspecified severity, with behavioral disturbance; E11.22 Type 2 diabetes mellitus with diabetic chronic kidney disease; E87.5 Hyperkalemia; D63.8 Anemia in other chronic diseases classified elsewhere; E86.0 Dehydration; I12.9 Hypertensive chronic kidney disease with stage 1 through stage 4 chronic kidney disease, or unspecified chronic kidney disease; J45.909 Unspecified asthma, uncomplicated; K21.9 Gastro-esophageal reflux disease without esophagitis; N40.0 Benign prostatic hyperplasia without lower urinary tract symptoms; Z73.6 Limitation of activities due to disability; Z79.84 Long term (current) use of oral hypoglycemic drugs; E66.9 Obesity, unspecified; Z68.28 Body mass index [BMI] 28.0-28.9, adult
CPT/HCPCS: 36415; 70450-TC; 80048-TC; 80053-TC; 80061-TC; 80076-TC; 82272-TC; 82306; 82652; 82728-TC; 82962-TC; 83540-TC; 83735-TC; 83970; 84100-TC; 85025-TC; 87081-TC; 97116-TC; 97530-TC; A4606; G0480; J1815; J7030; Z7610

== ENCOUNTER 2017-10-22 10:38 | Inpatient (IN) | payer MEDICARE, MEDICAID ==
[~2017-10-22 10:38] MED LIST: ALBU2.5V13 IH; ATOR20TA PO; DONE5TAB7 PO; GABA300C PO; GLUC1KIT IM; HUM10VIA5 SQ; IPRA0.2S9 IH; LORA-259 PO; LOSA100T3 PO; METF500T PO; MIRT15TA7 PO; PANT20TA2 PO; TAMS-12 PO
[2017-10-22] MEDS ORDERED: ALBUTEROL FS 2.5 MG/3 ML VIAL.NEB ONE (10:57)
[2017-10-22] MEDS ORDERED: IPRATROPIUM NEB FS 0.5 MG/2.5 ML AMPUL.NEB ONE (10:57)
[2017-10-22] MEDS ORDERED: PIPERACILLIN /TAZOBACTAM 3.375 G in IV D5W 50 ML IV ONE (11:00)
[2017-10-22] MEDS ORDERED: VANCOMYCIN 1 GM in IV D5W 250 ML IV ONE (11:00)
[2017-10-22] MEDS ORDERED: IPRATROPIUM NEB FS 0.5 MG/2.5 ML AMPUL.NEB NEB ONE (11:00)
[2017-10-22] MEDS ORDERED: IV NS 0.9% 1,000 ML BAG IV ONE ×3 (11:00→11:30)
[2017-10-22] MEDS ORDERED: ALBUTEROL FS 2.5 MG/3 ML VIAL.NEB NEB ONE (11:00)
[2017-10-22] MEDS ORDERED: MULT-213 PO (13:28)
[2017-10-22] MEDS ORDERED: DIVA125T32 PO (13:28)
[2017-10-22] MEDS ORDERED: HYDR-4076 PO (13:28)
[2017-10-22] MEDS ORDERED: INSU100V3 SQ (13:28)
[2017-10-22] MEDS ORDERED: FERR325T23 PO (13:28)
[2017-10-22] MEDS ORDERED: RISP1TAB27 PO (13:28)
[2017-10-22] MEDS ORDERED: RISP0.5T20 PO (13:28)
[2017-10-22] MEDS ORDERED: MAG30ORA PO (13:28)
[2017-10-22] MEDS ORDERED: NA P133E RC (13:28)
[2017-10-22] MEDS ORDERED: ACET-868 PO (13:28)
[2017-10-22] MEDS ORDERED: Z GUARD REMEDY 2 OZ OINT TP PRN (17:00)
[2017-10-22] MEDS ORDERED: DEXTROSE 50%-WATER 50 ML DISP.SYRIN IV PRN (17:00)
[2017-10-22] MEDS ORDERED: ACETAMINOPHEN 325 MG TABLET PO PRN (17:00)
[2017-10-22] MEDS ORDERED: ONDANSETRON HCL/PF 4 MG/2 ML VIAL IVP PRN (17:00)
[2017-10-22] MEDS ORDERED: ZOLPIDEM TARTRATE 5 MG TABLET PO PRN (17:00)
[2017-10-22] MEDS ORDERED: HYDROCODONE/APAP 5/325MG 1 EACH TABLET PO PRN (17:00)
[2017-10-22] MEDS ORDERED: FEE PK DOSING 1 MIN EA MC ONE (17:32)
[2017-10-22] MEDS ORDERED: BLOOD SUGAR DIAGNOSTIC 1 EACH STRIP IN SCH ×2 (18:00→22:00)
[2017-10-22] MEDS: risperiDONE 0.25 MG TABLET PO SCH (18:24)
[2017-10-22] MEDS: PIPERACILLIN /TAZOBACTAM 3.375 G in IV D5W 50 ML IV SCH (18:25)
[2017-10-22] MEDS: INSULIN REGULAR, HUMAN 100 UNIT/ML 3 ML VIAL SQ PRN ×2 (18:27→21:51)
[2017-10-22] MEDS: IV NS 0.9% 1,000 ML IV PRN (18:32)
[2017-10-22] MEDS: FERROUS SULFATE (325 MG) 325 MG/TAB TABLET PO SCH (20:27)
[2017-10-22] MEDS: HEPARIN SODIUM, PORCINE 5000 UNITS/1 ML VIAL SQ SCH (20:28)
[2017-10-22] MEDS ORDERED: ALBUTEROL FS 2.5 MG/3 ML VIAL.NEB NEB PRN (20:30)
[2017-10-22] MEDS ORDERED: IPRATROPIUM NEB FS 0.5 MG/2.5 ML AMPUL.NEB NEB PRN (20:30)
[2017-10-22] MEDS: DONEPEZIL 5 MG TABLET PO SCH (21:36)
[2017-10-22] MEDS: risperiDONE 1 MG TABLET PO SCH (21:36)
[2017-10-23] MEDS: PIPERACILLIN /TAZOBACTAM 3.375 G in IV D5W 50 ML IV SCH ×5 (00:11→23:15)
[2017-10-23] MEDS: BLOOD SUGAR DIAGNOSTIC 1 EACH STRIP IN SCH ×4 (05:28→23:25)
[2017-10-23] MEDS: INSULIN REGULAR, HUMAN 100 UNIT/ML 3 ML VIAL SQ PRN ×3 (05:33→23:26)
[2017-10-23] MEDS: FERROUS SULFATE (325 MG) 325 MG/TAB TABLET PO SCH ×2 (08:51→23:14)
[2017-10-23] MEDS: GABAPENTIN 300 MG CAPSULE PO SCH ×2 (08:51→16:35)
[2017-10-23] MEDS: risperiDONE 0.25 MG TABLET PO SCH ×2 (08:51→16:35)
[2017-10-23] MEDS: DIVALPROEX SODIUM 125 MG TABLET.DR PO SCH ×2 (08:56→16:35)
[2017-10-23] MEDS: TAMSULOSIN 0.4 MG CAP.SR.24H PO SCH (08:56)
[2017-10-23] MEDS: HEPARIN SODIUM, PORCINE 5000 UNITS/1 ML VIAL SQ SCH ×2 (08:59→22:18)
[2017-10-23] MEDS ORDERED: VANCOMYCIN 1 GM in IV D5W 250 ML IV SCH (11:00)
[2017-10-23] MEDS: LACTOBACILLUS RHAMNOSUS GG 1 EACH CAP.SPRINK PO SCH (16:35)
[2017-10-23] MEDS: IV NS 0.9% 1,000 ML IV PRN (18:19)
[2017-10-23] MEDS: risperiDONE 1 MG TABLET PO SCH (23:13)
[2017-10-23] MEDS: DONEPEZIL 5 MG TABLET PO SCH (23:13)
[2017-10-23] MEDS: ACETYLCYSTEINE 20% SOLN 800 MG/4 ML VIAL NEB SCH (23:39)
[2017-10-24] MEDS: BLOOD SUGAR DIAGNOSTIC 1 EACH STRIP IN SCH ×4 (05:30→23:29)
[2017-10-24] MEDS: VANCOMYCIN 1 GM in IV D5W 250 ML IV SCH ×2 (05:30→23:29)
[2017-10-24] MEDS: INSULIN REGULAR, HUMAN 100 UNIT/ML 3 ML VIAL SQ PRN ×3 (05:32→23:33)
[2017-10-24] MEDS: PIPERACILLIN /TAZOBACTAM 3.375 G in IV D5W 50 ML IV SCH ×3 (06:02→18:14)
[2017-10-24] MEDS: IV NS 0.9% 1,000 ML IV PRN (06:10)
[2017-10-24] MEDS: ACETYLCYSTEINE 20% SOLN 800 MG/4 ML VIAL NEB SCH ×3 (07:58→23:18)
[2017-10-24] MEDS: TAMSULOSIN 0.4 MG CAP.SR.24H PO SCH (09:16)
[2017-10-24] MEDS: risperiDONE 0.25 MG TABLET PO SCH ×2 (09:16→16:47)
[2017-10-24] MEDS: LACTOBACILLUS RHAMNOSUS GG 1 EACH CAP.SPRINK PO SCH ×2 (09:16→16:46)
[2017-10-24] MEDS: DIVALPROEX SODIUM 125 MG TABLET.DR PO SCH ×2 (09:16→16:46)
[2017-10-24] MEDS: GABAPENTIN 300 MG CAPSULE PO SCH ×2 (09:16→16:46)
[2017-10-24] MEDS: FERROUS SULFATE (325 MG) 325 MG/TAB TABLET PO SCH ×2 (09:17→21:00)
[2017-10-24] MEDS: HEPARIN SODIUM, PORCINE 5000 UNITS/1 ML VIAL SQ SCH ×2 (09:30→21:12)
[2017-10-24] MEDS ORDERED: IPRATROPIUM NEB FS 0.5 MG/2.5 ML AMPUL.NEB NEB PRN (14:30)
[2017-10-24] MEDS: ALBUTEROL FS 2.5 MG/0.5 ML VIAL.NEB NEB SCH ×3 (15:59→23:18)
[2017-10-24] MEDS: LEVOFLOXACIN 500 MG /D5W 100ML 500 MG in PREMIX 1 EA IV SCH (16:36)
[2017-10-24] MEDS: DONEPEZIL 5 MG TABLET PO SCH (21:12)
[2017-10-24] MEDS: risperiDONE 1 MG TABLET PO SCH (21:13)
[2017-10-25] MEDS: PIPERACILLIN /TAZOBACTAM 3.375 G in IV D5W 50 ML IV SCH ×5 (01:10→23:22)
[2017-10-25] MEDS: ALBUTEROL FS 2.5 MG/0.5 ML VIAL.NEB NEB SCH ×6 (02:57→23:35)
[2017-10-25] MEDS: IV NS 0.9% 1,000 ML IV PRN (05:02)
[2017-10-25] MEDS: BLOOD SUGAR DIAGNOSTIC 1 EACH STRIP IN SCH ×4 (05:08→23:22)
[2017-10-25] MEDS: INSULIN REGULAR, HUMAN 100 UNIT/ML 3 ML VIAL SQ PRN ×4 (05:11→23:30)
[2017-10-25] MEDS: ACETYLCYSTEINE 20% SOLN 800 MG/4 ML VIAL NEB SCH ×3 (07:16→23:35)
[2017-10-25] MEDS: HEPARIN SODIUM, PORCINE 5000 UNITS/1 ML VIAL SQ SCH ×2 (09:34→21:03)
[2017-10-25] MEDS: risperiDONE 0.25 MG TABLET PO SCH ×2 (09:35→17:52)
[2017-10-25] MEDS: LACTOBACILLUS RHAMNOSUS GG 1 EACH CAP.SPRINK PO SCH ×2 (09:35→17:52)
[2017-10-25] MEDS: TAMSULOSIN 0.4 MG CAP.SR.24H PO SCH (09:35)
[2017-10-25] MEDS: FERROUS SULFATE (325 MG) 325 MG/TAB TABLET PO SCH ×2 (09:35→21:01)
[2017-10-25] MEDS: GABAPENTIN 300 MG CAPSULE PO SCH ×2 (09:36→17:51)
[2017-10-25] MEDS: DIVALPROEX SODIUM 125 MG TABLET.DR PO SCH ×2 (09:36→17:52)
[2017-10-25] MEDS: Magnesium 1GM/D5W 100ML PREMIX 100 ML IV SCH ×2 (10:28→11:28)
[2017-10-25] MEDS: VANCOMYCIN 1 GM in IV D5W 250 ML IV SCH (13:47)
[2017-10-25] MEDS: LEVOFLOXACIN 500 MG /D5W 100ML 500 MG in PREMIX 1 EA IV SCH (15:47)
[2017-10-25] MEDS: risperiDONE 1 MG TABLET PO SCH (21:01)
[2017-10-25] MEDS: DONEPEZIL 5 MG TABLET PO SCH (21:01)
[2017-10-26] MEDS: VANCOMYCIN 1 GM in IV D5W 250 ML IV SCH ×2 (00:02→13:40)
[2017-10-26] MEDS: ALBUTEROL FS 2.5 MG/0.5 ML VIAL.NEB NEB SCH ×4 (02:53→15:29)
[2017-10-26] MEDS: PIPERACILLIN /TAZOBACTAM 3.375 G in IV D5W 50 ML IV SCH ×2 (05:26→12:14)
[2017-10-26] MEDS: BLOOD SUGAR DIAGNOSTIC 1 EACH STRIP IN SCH ×2 (05:26→12:13)
[2017-10-26] MEDS: INSULIN REGULAR, HUMAN 100 UNIT/ML 3 ML VIAL SQ PRN ×2 (05:30→12:16)
[2017-10-26] MEDS: ACETYLCYSTEINE 20% SOLN 800 MG/4 ML VIAL NEB SCH ×2 (07:17→15:29)
[2017-10-26] MEDS: FERROUS SULFATE (325 MG) 325 MG/TAB TABLET PO SCH (08:39)
[2017-10-26] MEDS: TAMSULOSIN 0.4 MG CAP.SR.24H PO SCH (08:39)
[2017-10-26] MEDS: GABAPENTIN 300 MG CAPSULE PO SCH (08:39)
[2017-10-26] MEDS: LACTOBACILLUS RHAMNOSUS GG 1 EACH CAP.SPRINK PO SCH (08:39)
[2017-10-26] MEDS: DIVALPROEX SODIUM 125 MG TABLET.DR PO SCH (08:39)
[2017-10-26] MEDS: risperiDONE 0.25 MG TABLET PO SCH (08:39)
[2017-10-26] MEDS: HEPARIN SODIUM, PORCINE 5000 UNITS/1 ML VIAL SQ SCH (08:40)
[2017-10-26] MEDS: IV NS 0.9% 1,000 ML IV PRN (08:43)
[2017-10-26] MEDS ORDERED: DOSE PER PHARMACY MICAFUNGIN 1 EA XX PRN (11:00)
[2017-10-26] MEDS ORDERED: MICAFUNGIN SODIUM 100 MG in IV NS 0.9% 100 ML IV SCH ×5 (12:00→13:00)
[2017-10-26] MEDS ORDERED: QUET25TA PO (13:41)
[2017-10-26] MEDS ORDERED: LEVO750T21 PO (13:41)
[2017-10-26] MEDS ORDERED: MICA100V IV (13:41)
== END 2017-10-26 16:31 | DRG 871 ==
DX: A41.9 Sepsis, unspecified organism (principal); E43 Unspecified severe protein-calorie malnutrition; N17.0 Acute kidney failure with tubular necrosis; I21.A1 Myocardial infarction type 2; G92 Toxic encephalopathy; E87.2 Acidosis; J18.9 Pneumonia, unspecified organism; E11.65 Type 2 diabetes mellitus with hyperglycemia; E11.22 Type 2 diabetes mellitus with diabetic chronic kidney disease; B37.49 Other urogenital candidiasis; I13.0 Hypertensive heart and chronic kidney disease with heart failure and stage 1 through stage 4 chronic kidney disease, or unspecified chronic kidney disease; I50.20 Unspecified systolic (congestive) heart failure; E88.09 Other disorders of plasma-protein metabolism, not elsewhere classified; J45.909 Unspecified asthma, uncomplicated; F03.90 Unspecified dementia, unspecified severity, without behavioral disturbance, psychotic disturbance, mood disturbance, and anxiety; K21.9 Gastro-esophageal reflux disease without esophagitis; E66.9 Obesity, unspecified; F09 Unspecified mental disorder due to known physiological condition; Z87.01 Personal history of pneumonia (recurrent); D63.8 Anemia in other chronic diseases classified elsewhere; N40.1 Benign prostatic hyperplasia with lower urinary tract symptoms; Z68.26 Body mass index [BMI] 26.0-26.9, adult; F32.9 Major depressive disorder, single episode, unspecified; N18.9 Chronic kidney disease, unspecified; D63.1 Anemia in chronic kidney disease; Z79.84 Long term (current) use of oral hypoglycemic drugs; I34.0 Nonrheumatic mitral (valve) insufficiency; Z79.4 Long term (current) use of insulin

== ENCOUNTER 2018-03-24 17:44 | Inpatient (IN) | payer MEDICARE, MEDICAID ==
[~2018-03-24] VITALS: Ht 177.8 cm; Wt 81.6 kg
[~2018-03-24 17:44] MED LIST changes: +ACET-868 PO; -ATOR20TA PO; +DIVA125T32 PO; +FERR325T23 PO; -GLUC1KIT IM; +HYDR-4076 PO; +INSU100V3 SQ; -IPRA0.2S9 IH; +LEVO750T21 PO; -LORA-259 PO; -LOSA100T3 PO; +MAG30ORA PO; -METF500T PO; +MICA100V IV; -MIRT15TA7 PO; +MULT-213 PO; +NA P133E RC; +QUET25TA PO; +RISP0.5T20 PO; +RISP1TAB27 PO
[2018-03-24] MEDS ORDERED: MEROPENEM 1,000 MG in IV NS 0.9% 100 ML IV ONE (18:00)
[2018-03-24] MEDS ORDERED: VANCOMYCIN 1 GM in IV D5W 250 ML IV ONE ×2 (18:00→20:00)
[2018-03-24] MEDS ORDERED: ACETAMINOPHEN 650 MG/SUPP.RECT RC ONE ×2 (18:00→18:47)
[2018-03-24 18:26] LABS: BASOPHILS % (AUTO) 0.1 % (0.0-2.0); EOSINOPHILS % (AUTO) 0.2 % (0.0-6.0); HEMATOCRIT 30 % (39-51); HEMOGLOBIN 10.1 g/dL (13.5-17.5); LYMPHOCYTES # (AUTO) 1.1 /CMM (0.8-4.8); LYMPHOCYTES % (AUTO) 8.3 % (20.0-44.0); MEAN CORPUSCULAR HGB CONC 34 g/dl (31.0-36.0); MEAN CORPUSCULAR VOLUME 84 fL (80-96); MONOCYTES # (AUTO) 0.4 /CMM (0.1-1.30); MONOCYTES % (AUTO) 2.7 % (2.0-12.0); NEUTROPHILS # (AUTO) 12.1 /CMM (1.8-8.9); NEUTROPHILS % (AUTO) 88.7 % (43.0-81.0); PLATELET COUNT (AUTO) 297 /CMM (150-450); RDW COEFFICIENT OF VARIATION 13.7 (11.5-15.0); RED BLOOD CELL COUNT(AUTO) 3.57 MIL/uL (4.5-6.0); WHITE BLOOD COUNT (AUTO) 13.6 K/uL (4.3-11.0)
[2018-03-24 18:28] LABS: ABG BASE EXCESS 0.7 mmol/L; ABG OXYGEN SATURATION 96.2 % (92.0-98.5); ABG PCO2 35.4 mmHg (35.0-45.0); ABG PH 7.455 (7.350-7.450); ABG PO2 87.6 mmHg (75.0-100.0); COHb 0.3 % (0.5-1.5); MetHb 0.6 % (0.0-1.5); O2Hb 95.3 % (94.0-97.0); SITE, ABG Right Brachial; VENT MODE, BG NRB
[2018-03-24] MEDS ORDERED: IV NS 0.9% 1,000 ML BAG IV ONE (18:30)
[2018-03-24 18:39] LABS: INR 0.99 (0.85-1.15)
[2018-03-24] MEDS ORDERED: DOCU100C36 PO (18:42)
[2018-03-24 18:48] LABS: ALANINE AMINOTRANSFERASE 32 U/L (12-78); ALBUMIN 2.3 g/dL (3.4-5.0); ALKALINE PHOSPHATASE 82 U/L (46-116); ASPARTATE AMINOTRANSFERASE 20 U/L (15-37); BILIRUBIN,DIRECT 0.1 mg/dL (0.0-0.2); BILIRUBIN,TOTAL 0.6 mg/dL (0.2-1.0); CALCIUM, SERUM 8.5 mg/dL (8.5-10.1); CARBON DIOXIDE 28 mmol/L (21-32); CHLORIDE 104 mmol/L (98-107); CREATININE 1.5 mg/dL (0.6-1.3); GLUCOSE 176 mg/dL (74-106); POTASSIUM 4.5 mmol/L (3.5-5.1); SODIUM SERUM 138 mmol/L (136-145); TOTAL PROTEIN, SERUM 7.9 g/dL (6.4-8.2); UREA NITROGEN, BLOOD 37 mg/dL (7-18)
[2018-03-24 18:52] LABS: TROPONIN I 0.113 ng/mL (0.00-0.056)
[2018-03-24 18:55] LABS: APPEARANCE,URINE Clear (CLEAR); BILIRUBIN,URINE Negative (NEGATIVE); BLOOD, URINE Small Ery/uL (NEGATIVE); COLOR,URINE Yellow (YELLOW); KETONES,URINE Negative (NEGATIVE); LEUKOCYTE ESTERASE ,URINE Small (NEGATIVE); NITRITE, URINE Negative (NEGATIVE); PH,URINE 5.5 (5.0-8.0); PROTEIN,URINE 30 mg/dl (NEGATIVE); UGLUCOSE Negative (NEGATIVE); UROBILINOGEN,URINE 0.2 EU/dL (0.2)
[2018-03-24] MEDS ORDERED: IPRATROPIUM NEB FS 0.5 MG/2.5 ML AMPUL.NEB NEB ONE (19:00)
[2018-03-24] MEDS ORDERED: ALBUTEROL FS 2.5 MG/3 ML VIAL.NEB NEB ONE (19:00)
[2018-03-24 19:06] LABS: BACTERIA,URINE 3+ /HPF (None Seen); SQUAMOUS EPITHELIAL CELL,UR Few /HPF (None Seen)
[2018-03-24] MEDS ORDERED: IPRATROPIUM NEB FS 0.5 MG/2.5 ML AMPUL.NEB ONE (19:07)
[2018-03-24] MEDS ORDERED: ALBUTEROL FS 2.5 MG/3 ML VIAL.NEB ONE (19:07)
[2018-03-24] MEDS ORDERED: ONDANSETRON HCL/PF 4 MG/2 ML VIAL IVP PRN (20:00)
[2018-03-24] MEDS ORDERED: DEXTROSE 50%-WATER 50 ML DISP.SYRIN IV PRN (20:00)
[2018-03-24] MEDS ORDERED: ASPIRIN 300 MG/SUPP.RECT RC ONE ×2 (20:00→20:12)
[2018-03-24] MEDS ORDERED: ACETAMINOPHEN 650 MG/SUPP.RECT RC PRN (20:00)
[2018-03-24] MEDS ORDERED: ACETAMINOPHEN 325 MG TABLET PO PRN (20:00)
[2018-03-24] MEDS: NORMAL SALINE FLUSH 10 ML SYR IV SCH (21:00)
[2018-03-24] MEDS ORDERED: IV NS 0.9% 500 ML BAG IV ONE (21:00)
[2018-03-24] MEDS ORDERED: FEE PK DOSING 1 MIN EA MC ONE (21:03)
[2018-03-24 21:22] LABS: ABG BASE EXCESS -2.6 mmol/L; ABG OXYGEN SATURATION 90.7 % (92.0-98.5); ABG PCO2 36.4 mmHg (35.0-45.0); ABG PH 7.396 (7.350-7.450); ABG PO2 63.4 mmHg (75.0-100.0); AaDO2 93.3 mmHg; COHb 0.2 % (0.5-1.5); MetHb 0.7 % (0.0-1.5); O2Hb 89.9 % (94.0-97.0); VENT MODE, BG 3L NC
[2018-03-24 21:29] VITALS: BP 105/54
[2018-03-24 21:31] VITALS: BP 117/56
[2018-03-24] MEDS: IV NS 0.9% 1,000 ML IV SCH (21:53)
[2018-03-24] MEDS: ENOXAPARIN SODIUM 40 MG/0.4 ML DISP.SYRIN SQ SCH (21:54)
[2018-03-24 22:00] VITALS: BP 104/64
[2018-03-24] MEDS: BLOOD SUGAR DIAGNOSTIC 1 EACH STRIP IN SCH (22:12)
[2018-03-24 22:30] VITALS: BP 92/44
[2018-03-24] MEDS: DONEPEZIL 5 MG TABLET PO SCH (22:52)
[2018-03-24] MEDS: TAMSULOSIN 0.4 MG CAP.SR.24H PO SCH (22:52)
[2018-03-24] MEDS: risperiDONE 1 MG TABLET PO SCH (22:52)
[2018-03-24 23:00] VITALS: BP 114/53
[2018-03-24] MEDS: ALBUTEROL FS 2.5 MG/0.5 ML VIAL.NEB NEB SCH (23:38)
[2018-03-24] MEDS: IPRATROPIUM NEB FS 0.5 MG/2.5 ML AMPUL.NEB NEB SCH (23:38)
[2018-03-25] VITALS (26 sets, daily range): BP systolic 101–138; BP diastolic 41–64
[2018-03-25] MEDS ORDERED: PIPERACILLIN /TAZOBACTAM 3.375 G VIAL IV ONE ×2 (00:01→05:04)
[2018-03-25] MEDS: PIPERACILLIN /TAZOBACTAM 3.375 G in IV D5W 50 ML IV SCH ×4 (00:04→18:56)
[2018-03-25] MEDS: BLOOD SUGAR DIAGNOSTIC 1 EACH STRIP IN SCH ×6 (01:18→21:28)
[2018-03-25] MEDS: IV NS 0.9% 1,000 ML IV SCH (03:01)
[2018-03-25] MEDS: IPRATROPIUM NEB FS 0.5 MG/2.5 ML AMPUL.NEB NEB SCH ×7 (03:54→23:32)
[2018-03-25] MEDS: ALBUTEROL FS 2.5 MG/0.5 ML VIAL.NEB NEB SCH ×7 (03:54→23:32)
[2018-03-25] MEDS: NORMAL SALINE FLUSH 10 ML SYR IV SCH ×3 (05:00→21:37)
[2018-03-25 05:01] LABS: CALCIUM, SERUM 7.8 mg/dL (8.5-10.1); CARBON DIOXIDE 26 mmol/L (21-32); CHLORIDE 108 mmol/L (98-107); CREATININE 1.1 mg/dL (0.6-1.3); GLUCOSE 92 mg/dL (74-106); SODIUM SERUM 142 mmol/L (136-145); UREA NITROGEN, BLOOD 32 mg/dL (7-18)
[2018-03-25 07:54] LABS: MAGNESIUM 1.7 mg/dL (1.8-2.4); PHOSPHORUS 3.8 mg/dL (2.5-4.9)
[2018-03-25] MEDS ORDERED: IV NS 0.9% 1,000 ML IV PRN (08:00)
[2018-03-25 08:18] LABS: THYROID STIMULATING HORMONE 1.242 uIU/mL (0.358-3.74)
[2018-03-25] MEDS: VANCOMYCIN 0.75 GM in IV D5W 250 ML IV SCH ×2 (08:44→20:12)
[2018-03-25] MEDS: GABAPENTIN 300 MG CAPSULE PO SCH ×2 (08:45→16:10)
[2018-03-25] MEDS: risperiDONE 0.25 MG TABLET PO SCH ×2 (08:45→16:10)
[2018-03-25] MEDS: ASPIRIN 81 MG TAB.CHEW PO SCH (08:45)
[2018-03-25] MEDS: PANTOPRAZOLE 40 MG VIAL IV SCH (08:45)
[2018-03-25 08:48] LABS: BASOPHILS % (AUTO) 0.3 % (0.0-2.0); EOSINOPHILS % (AUTO) 0.1 % (0.0-6.0); HEMATOCRIT 27 % (39-51); HEMOGLOBIN 8.6 g/dL (13.5-17.5); LYMPHOCYTES # (AUTO) 2.7 /CMM (0.8-4.8); LYMPHOCYTES % (AUTO) 23.1 % (20.0-44.0); MEAN CORPUSCULAR HGB CONC 32 g/dl (31.0-36.0); MEAN CORPUSCULAR VOLUME 86 fL (80-96); MONOCYTES # (AUTO) 0.4 /CMM (0.1-1.30); MONOCYTES % (AUTO) 3.5 % (2.0-12.0); NEUTROPHILS # (AUTO) 8.5 /CMM (1.8-8.9); PLATELET COUNT (AUTO) 233 /CMM (150-450); RED BLOOD CELL COUNT(AUTO) 3.18 MIL/uL (4.5-6.0); WHITE BLOOD COUNT (AUTO) 11.7 K/uL (4.3-11.0)
[2018-03-25] MEDS ORDERED: DOCUSATE SODIUM 100 MG CAPSULE PO SCH (09:00)
[2018-03-25] MEDS: DIVALPROEX SODIUM 125 MG TABLET.DR PO SCH ×2 (09:00→16:10)
[2018-03-25] MEDS ORDERED: FERROUS SULFATE (325 MG) 325 MG/TAB TABLET PO SCH (09:00)
[2018-03-25] MEDS ORDERED: Z GUARD REMEDY 2 OZ OINT TP PRN (09:30)
[2018-03-25] MEDS: Magnesium 1GM/D5W 100ML PREMIX 100 ML IV SCH ×2 (10:01→11:07)
[2018-03-25] MEDS: Z GUARD REMEDY 2 OZ OINT TP SCH (11:06)
[2018-03-25] MEDS: HYDROGEL DRESSING 90 GM TUBE TP SCH (11:06)
[2018-03-25] MEDS: HYDROGEL DRESSING 90 GM TUBE TP PRN (11:06)
[2018-03-25] MEDS: DOCUSATE SODIUM LIQ 100 MG/10 ML UDC NG SCH (16:12)
[2018-03-25] MEDS: DONEPEZIL 5 MG TABLET PO SCH (21:18)
[2018-03-25] MEDS: TAMSULOSIN 0.4 MG CAP.SR.24H PO SCH (21:18)
[2018-03-25] MEDS: risperiDONE 1 MG TABLET PO SCH (21:18)
[2018-03-25] MEDS: INSULIN REGULAR, HUMAN 100 UNIT/ML 3 ML VIAL SQ PRN (21:25)
[2018-03-25] MEDS: ENOXAPARIN SODIUM 40 MG/0.4 ML DISP.SYRIN SQ SCH (21:27)
[2018-03-26] VITALS (8 sets, daily range): BP systolic 98–135; BP diastolic 37–75
[2018-03-26] MEDS: PIPERACILLIN /TAZOBACTAM 3.375 G in IV D5W 50 ML IV SCH ×2 (00:18→05:42)
[2018-03-26] MEDS: BLOOD SUGAR DIAGNOSTIC 1 EACH STRIP IN SCH ×5 (00:36→17:14)
[2018-03-26] MEDS: ALBUTEROL FS 2.5 MG/0.5 ML VIAL.NEB NEB SCH ×6 (03:58→23:19)
[2018-03-26] MEDS: IPRATROPIUM NEB FS 0.5 MG/2.5 ML AMPUL.NEB NEB SCH ×6 (03:58→23:19)
[2018-03-26] MEDS: NORMAL SALINE FLUSH 10 ML SYR IV SCH ×3 (05:31→21:58)
[2018-03-26 07:19] LABS: BASOPHILS % (AUTO) 0.2 % (0.0-2.0); EOSINOPHILS % (AUTO) 0.6 % (0.0-6.0); HEMATOCRIT 27 % (39-51); HEMOGLOBIN 8.7 g/dL (13.5-17.5); LYMPHOCYTES # (AUTO) 1.3 /CMM (0.8-4.8); MEAN CORPUSCULAR HGB CONC 33 g/dl (31.0-36.0); MEAN CORPUSCULAR VOLUME 86 fL (80-96); MONOCYTES # (AUTO) 0.5 /CMM (0.1-1.30); MONOCYTES % (AUTO) 5.6 % (2.0-12.0); NEUTROPHILS # (AUTO) 6.9 /CMM (1.8-8.9); NEUTROPHILS % (AUTO) 78.6 % (43.0-81.0); PLATELET COUNT (AUTO) 245 /CMM (150-450); RDW COEFFICIENT OF VARIATION 14.8 (11.5-15.0); WHITE BLOOD COUNT (AUTO) 8.8 K/uL (4.3-11.0)
[2018-03-26 07:33] LABS: ALANINE AMINOTRANSFERASE 21 U/L (12-78); ALBUMIN 1.9 g/dL (3.4-5.0); ALKALINE PHOSPHATASE 65 U/L (46-116); ASPARTATE AMINOTRANSFERASE 19 U/L (15-37); BILIRUBIN,TOTAL 0.8 mg/dL (0.2-1.0); CALCIUM, SERUM 8.2 mg/dL (8.5-10.1); CARBON DIOXIDE 25 mmol/L (21-32); CHLORIDE 105 mmol/L (98-107); GLUCOSE 140 mg/dL (74-106); MAGNESIUM 1.9 mg/dL (1.8-2.4); PHOSPHORUS 2.8 mg/dL (2.5-4.9); POTASSIUM 3.8 mmol/L (3.5-5.1); SODIUM SERUM 139 mmol/L (136-145); TOTAL PROTEIN, SERUM 6.9 g/dL (6.4-8.2); UREA NITROGEN, BLOOD 20 mg/dL (7-18)
[2018-03-26 07:36] LABS: TROPONIN I 0.064 ng/mL (0.00-0.056)
[2018-03-26] MEDS: DOCUSATE SODIUM LIQ 100 MG/10 ML UDC NG SCH ×2 (08:41→16:05)
[2018-03-26] MEDS: DIVALPROEX SODIUM 125 MG TABLET.DR PO SCH ×2 (08:42→16:05)
[2018-03-26] MEDS: risperiDONE 0.25 MG TABLET PO SCH ×2 (08:42→16:05)
[2018-03-26] MEDS: ASPIRIN 81 MG TAB.CHEW PO SCH (08:43)
[2018-03-26] MEDS: GABAPENTIN 300 MG CAPSULE PO SCH ×2 (08:43→16:05)
[2018-03-26] MEDS: HYDROGEL DRESSING 90 GM TUBE TP PRN (08:43)
[2018-03-26] MEDS: HYDROGEL DRESSING 90 GM TUBE TP SCH (08:44)
[2018-03-26] MEDS: Z GUARD REMEDY 2 OZ OINT TP SCH (08:44)
[2018-03-26] MEDS: PANTOPRAZOLE 40 MG VIAL IV SCH (08:47)
[2018-03-26] MEDS: VANCOMYCIN 0.75 GM in IV D5W 250 ML IV SCH ×2 (09:01→21:46)
[2018-03-26] MEDS ORDERED: BARIUM SULFATE 240 ML ORAL.SUSP PO ONE (11:27)
[2018-03-26] MEDS ORDERED: BARIUM SULFATE 148 GM SUSP.RECON PO ONE (11:27)
[2018-03-26] MEDS: GLUCERNA 1.2 1,000 ML BOTTLE NG PRN (12:15)
[2018-03-26] MEDS: INSULIN REGULAR, HUMAN 100 UNIT/ML 3 ML VIAL SQ PRN ×2 (12:37→16:53)
[2018-03-26] MEDS: MEROPENEM 1 G in IV NS 0.9% 100 ML IV SCH (12:37)
[2018-03-26] MEDS ORDERED: MEROPENEM 500 MG in IV NS 0.9% 50 ML IV SCH (13:00)
[2018-03-26] MEDS ORDERED: DEXTROSE 50%-WATER 50 ML DISP.SYRIN IV PRN (14:00)
[2018-03-26] MEDS: SOD FERRIC GLUC 125 MG in IV NS 0.9% 100 ML IV SCH (14:59)
[2018-03-26] MEDS: TAMSULOSIN 0.4 MG CAP.SR.24H PO SCH (21:46)
[2018-03-26] MEDS: DONEPEZIL 5 MG TABLET PO SCH (21:47)
[2018-03-26] MEDS: risperiDONE 1 MG TABLET PO SCH (21:47)
[2018-03-26] MEDS: ENOXAPARIN SODIUM 40 MG/0.4 ML DISP.SYRIN SQ SCH (21:48)
[2018-03-27] VITALS: BP 120/64
[2018-03-27] MEDS: MEROPENEM 1 G in IV NS 0.9% 100 ML IV SCH ×3 (00:36→23:28)
[2018-03-27] MEDS: BLOOD SUGAR DIAGNOSTIC 1 EACH STRIP IN SCH ×5 (00:37→23:28)
[2018-03-27] MEDS: INSULIN REGULAR, HUMAN 100 UNIT/ML 3 ML VIAL SQ PRN ×2 (00:51→23:38)
[2018-03-27] MEDS: ALBUTEROL FS 2.5 MG/0.5 ML VIAL.NEB NEB SCH ×6 (03:39→23:35)
[2018-03-27] MEDS: IPRATROPIUM NEB FS 0.5 MG/2.5 ML AMPUL.NEB NEB SCH ×6 (03:39→23:35)
[2018-03-27 04:06] VITALS: BP 126/51
[2018-03-27] MEDS: NORMAL SALINE FLUSH 10 ML SYR IV SCH ×3 (05:37→21:53)
[2018-03-27 06:54] LABS: BASOPHILS % (AUTO) 0.3 % (0.0-2.0); EOSINOPHILS % (AUTO) 1.6 % (0.0-6.0); HEMATOCRIT 27 % (39-51); HEMOGLOBIN 8.8 g/dL (13.5-17.5); LYMPHOCYTES # (AUTO) 1.4 /CMM (0.8-4.8); LYMPHOCYTES % (AUTO) 19.1 % (20.0-44.0); MEAN CORPUSCULAR HGB CONC 33 g/dl (31.0-36.0); MEAN CORPUSCULAR VOLUME 86 fL (80-96); MONOCYTES # (AUTO) 0.4 /CMM (0.1-1.30); MONOCYTES % (AUTO) 4.8 % (2.0-12.0); NEUTROPHILS # (AUTO) 5.6 /CMM (1.8-8.9); NEUTROPHILS % (AUTO) 74.2 % (43.0-81.0); PLATELET COUNT (AUTO) 287 /CMM (150-450); RDW COEFFICIENT OF VARIATION 14.6 (11.5-15.0); RED BLOOD CELL COUNT(AUTO) 3.14 MIL/uL (4.5-6.0); WHITE BLOOD COUNT (AUTO) 7.5 K/uL (4.3-11.0)
[2018-03-27 07:08] LABS: CALCIUM, SERUM 8.1 mg/dL (8.5-10.1); CARBON DIOXIDE 29 mmol/L (21-32); CHLORIDE 105 mmol/L (98-107); CREATININE 0.9 mg/dL (0.6-1.3); GLUCOSE 102 mg/dL (74-106); POTASSIUM 3.3 mmol/L (3.5-5.1); SODIUM SERUM 139 mmol/L (136-145); UREA NITROGEN, BLOOD 16 mg/dL (7-18)
[2018-03-27 08:00] VITALS: BP 126/62
[2018-03-27] MEDS: PROSOURCE / PROSTAT (PYXIS) 30 ML UDC GT SCH ×3 (09:00→17:39)
[2018-03-27] MEDS: risperiDONE 0.25 MG TABLET PO SCH ×2 (09:00→17:38)
[2018-03-27] MEDS: VANCOMYCIN 0.75 GM in IV D5W 250 ML IV SCH ×2 (11:04→21:42)
[2018-03-27] MEDS: POTASSIUM CL. PREMIX PERIPHER. 50 ML IV SCH ×4 (11:05→13:44)
[2018-03-27] MEDS: Z GUARD REMEDY 2 OZ OINT TP SCH (11:06)
[2018-03-27] MEDS: MULTIVITAMINS,THERAGRAN 1 UDTAB TABLET NG SCH (11:06)
[2018-03-27] MEDS: PANTOPRAZOLE 40 MG VIAL IV SCH (11:06)
[2018-03-27] MEDS: HYDROGEL DRESSING 90 GM TUBE TP SCH (11:06)
[2018-03-27] MEDS: ASPIRIN 81 MG TAB.CHEW PO SCH (11:07)
[2018-03-27] MEDS: DIVALPROEX SODIUM 125 MG TABLET.DR PO SCH ×2 (11:07→17:38)
[2018-03-27] MEDS: ASCORBIC ACID 500 MG TABLET NG SCH (11:07)
[2018-03-27] MEDS: GABAPENTIN 300 MG CAPSULE PO SCH ×2 (11:07→17:38)
[2018-03-27 12:00] VITALS: BP_SYST 125; BP_SYST 128; BP_DIAS 60; BP_DIAS 64
[2018-03-27] MEDS: DOCUSATE SODIUM LIQ 100 MG/10 ML UDC NG SCH ×2 (13:42→17:39)
[2018-03-27] MEDS: SOD FERRIC GLUC 125 MG in IV NS 0.9% 100 ML IV SCH (15:46)
[2018-03-27 16:00] VITALS: BP_SYST 119; BP_SYST 120; BP_DIAS 63; BP_DIAS 73
[2018-03-27] MEDS ORDERED: POTASSIUM CHLORIDE 10 MEQ/50 ML PREMIXED IVPB FOR PERIPHERAL LINE IV ONE (16:00)
[2018-03-27] MEDS: LACTOBACILLUS RHAMNOSUS GG 1 EACH CAP.SPRINK NG SCH (17:38)
[2018-03-27 20:00] VITALS: BP 100/58
[2018-03-27] MEDS: DONEPEZIL 5 MG TABLET PO SCH (21:42)
[2018-03-27] MEDS: risperiDONE 1 MG TABLET PO SCH (21:42)
[2018-03-27] MEDS: TAMSULOSIN 0.4 MG CAP.SR.24H PO SCH (21:42)
[2018-03-27] MEDS: ENOXAPARIN SODIUM 40 MG/0.4 ML DISP.SYRIN SQ SCH (21:43)
[2018-03-28] MEDS: IPRATROPIUM NEB FS 0.5 MG/2.5 ML AMPUL.NEB NEB SCH ×6 (02:34→22:49)
[2018-03-28] MEDS: ALBUTEROL FS 2.5 MG/0.5 ML VIAL.NEB NEB SCH ×6 (02:34→22:49)
[2018-03-28 04:00] VITALS: BP 145/88
[2018-03-28] MEDS: GLUCERNA 1.2 1,000 ML BOTTLE NG PRN (04:38)
[2018-03-28] MEDS: NORMAL SALINE FLUSH 10 ML SYR IV SCH ×2 (04:54→21:00)
[2018-03-28] MEDS: BLOOD SUGAR DIAGNOSTIC 1 EACH STRIP IN SCH ×4 (05:21→18:20)
[2018-03-28 06:26] VITALS: BP 145/88
[2018-03-28 07:29] LABS: BASOPHILS % (AUTO) 0.4 % (0.0-2.0); EOSINOPHILS % (AUTO) 1.6 % (0.0-6.0); HEMATOCRIT 27 % (39-51); HEMOGLOBIN 8.8 g/dL (13.5-17.5); LYMPHOCYTES # (AUTO) 1.5 /CMM (0.8-4.8); LYMPHOCYTES % (AUTO) 22.6 % (20.0-44.0); MEAN CORPUSCULAR HGB CONC 32 g/dl (31.0-36.0); MEAN CORPUSCULAR VOLUME 86 fL (80-96); MONOCYTES # (AUTO) 0.4 /CMM (0.1-1.30); MONOCYTES % (AUTO) 6.8 % (2.0-12.0); NEUTROPHILS # (AUTO) 4.5 /CMM (1.8-8.9); NEUTROPHILS % (AUTO) 68.6 % (43.0-81.0); PLATELET COUNT (AUTO) 306 /CMM (150-450); RDW COEFFICIENT OF VARIATION 14.8 (11.5-15.0); RED BLOOD CELL COUNT(AUTO) 3.18 MIL/uL (4.5-6.0); WHITE BLOOD COUNT (AUTO) 6.6 K/uL (4.3-11.0)
[2018-03-28 07:36] LABS: CALCIUM, SERUM 8.3 mg/dL (8.5-10.1); CARBON DIOXIDE 29 mmol/L (21-32); CHLORIDE 102 mmol/L (98-107); CREATININE 0.8 mg/dL (0.6-1.3); GLUCOSE 89 mg/dL (74-106); POTASSIUM 3.8 mmol/L (3.5-5.1); SODIUM SERUM 137 mmol/L (136-145); UREA NITROGEN, BLOOD 17 mg/dL (7-18)
[2018-03-28 08:00] VITALS: BP 151/70
[2018-03-28] MEDS: PROSOURCE / PROSTAT (PYXIS) 30 ML UDC GT SCH ×3 (09:24→18:06)
[2018-03-28] MEDS: Z GUARD REMEDY 2 OZ OINT TP SCH (09:24)
[2018-03-28] MEDS: HYDROGEL DRESSING 90 GM TUBE TP SCH (09:24)
[2018-03-28] MEDS: DOCUSATE SODIUM LIQ 100 MG/10 ML UDC NG SCH ×2 (09:25→18:07)
[2018-03-28] MEDS: DIVALPROEX SODIUM 125 MG TABLET.DR PO SCH ×2 (09:25→18:07)
[2018-03-28] MEDS: LACTOBACILLUS RHAMNOSUS GG 1 EACH CAP.SPRINK NG SCH ×2 (09:25→18:06)
[2018-03-28] MEDS: MULTIVITAMINS,THERAGRAN 1 UDTAB TABLET NG SCH (09:25)
[2018-03-28] MEDS: risperiDONE 0.25 MG TABLET PO SCH ×2 (09:25→18:07)
[2018-03-28] MEDS: ASCORBIC ACID 500 MG TABLET NG SCH (09:25)
[2018-03-28] MEDS: PANTOPRAZOLE 40 MG VIAL IV SCH (09:25)
[2018-03-28] MEDS: GABAPENTIN 300 MG CAPSULE PO SCH ×2 (09:25→18:07)
[2018-03-28] MEDS: ASPIRIN 81 MG TAB.CHEW PO SCH (09:26)
[2018-03-28] MEDS: VANCOMYCIN 0.75 GM in IV D5W 250 ML IV SCH ×2 (09:27→20:20)
[2018-03-28 12:00] VITALS: BP 147/62
[2018-03-28] MEDS: MEROPENEM 1 G in IV NS 0.9% 100 ML IV SCH ×2 (12:07→23:30)
[2018-03-28] MEDS: SOD FERRIC GLUC 125 MG in IV NS 0.9% 100 ML IV SCH (15:37)
[2018-03-28 16:00] VITALS: BP 156/69
[2018-03-28] MEDS: INSULIN REGULAR, HUMAN 100 UNIT/ML 3 ML VIAL SQ PRN (18:31)
[2018-03-28 20:00] VITALS: BP 140/53
[2018-03-28] MEDS: ENOXAPARIN SODIUM 40 MG/0.4 ML DISP.SYRIN SQ SCH (21:14)
[2018-03-28] MEDS: DONEPEZIL 5 MG TABLET PO SCH (21:14)
[2018-03-28] MEDS: TAMSULOSIN 0.4 MG CAP.SR.24H PO SCH (21:15)
[2018-03-28] MEDS: risperiDONE 1 MG TABLET PO SCH (21:15)
[2018-03-29] VITALS: BP_SYST 130; BP_SYST 152; BP_DIAS 53; BP_DIAS 54
[2018-03-29] MEDS: BLOOD SUGAR DIAGNOSTIC 1 EACH STRIP IN SCH ×4 (00:14→18:34)
[2018-03-29] MEDS: INSULIN REGULAR, HUMAN 100 UNIT/ML 3 ML VIAL SQ PRN ×3 (00:17→12:28)
[2018-03-29] MEDS: IPRATROPIUM NEB FS 0.5 MG/2.5 ML AMPUL.NEB NEB SCH ×6 (03:15→23:27)
[2018-03-29] MEDS: ALBUTEROL FS 2.5 MG/0.5 ML VIAL.NEB NEB SCH ×6 (03:16→23:27)
[2018-03-29 04:00] VITALS: BP 127/44
[2018-03-29 06:45] LABS: BASOPHILS % (AUTO) 0.4 % (0.0-2.0); HEMATOCRIT 28 % (39-51); HEMOGLOBIN 9.1 g/dL (13.5-17.5); LYMPHOCYTES # (AUTO) 1.6 /CMM (0.8-4.8); LYMPHOCYTES % (AUTO) 22.3 % (20.0-44.0); MEAN CORPUSCULAR HGB CONC 32 g/dl (31.0-36.0); MEAN CORPUSCULAR VOLUME 86 fL (80-96); MONOCYTES # (AUTO) 0.4 /CMM (0.1-1.30); MONOCYTES % (AUTO) 5.7 % (2.0-12.0); NEUTROPHILS # (AUTO) 5.2 /CMM (1.8-8.9); NEUTROPHILS % (AUTO) 70.6 % (43.0-81.0); PLATELET COUNT (AUTO) 318 /CMM (150-450); RDW COEFFICIENT OF VARIATION 14.6 (11.5-15.0); WHITE BLOOD COUNT (AUTO) 7.3 K/uL (4.3-11.0)
[2018-03-29 06:49] LABS: CARBON DIOXIDE 31 mmol/L (21-32); CHLORIDE 101 mmol/L (98-107); CREATININE 0.9 mg/dL (0.6-1.3); GLUCOSE 137 mg/dL (74-106); POTASSIUM 3.8 mmol/L (3.5-5.1); SODIUM SERUM 136 mmol/L (136-145); UREA NITROGEN, BLOOD 19 mg/dL (7-18)
[2018-03-29 06:53] LABS: CALCIUM, SERUM 8.6 mg/dL (8.5-10.1)
[2018-03-29 08:00] VITALS: BP 139/77
[2018-03-29] MEDS: VANCOMYCIN 0.75 GM in IV D5W 250 ML IV SCH ×2 (08:18→20:51)
[2018-03-29] MEDS: PANTOPRAZOLE 40 MG VIAL IV SCH (09:41)
[2018-03-29] MEDS: risperiDONE 0.25 MG TABLET PO SCH ×2 (09:41→17:00)
[2018-03-29] MEDS: GABAPENTIN 300 MG CAPSULE PO SCH ×2 (09:41→17:00)
[2018-03-29] MEDS: DOCUSATE SODIUM LIQ 100 MG/10 ML UDC NG SCH ×2 (09:41→17:00)
[2018-03-29] MEDS: PROSOURCE / PROSTAT (PYXIS) 30 ML UDC GT SCH ×3 (09:41→17:00)
[2018-03-29] MEDS: ASPIRIN 81 MG TAB.CHEW PO SCH (09:42)
[2018-03-29] MEDS: DIVALPROEX SODIUM 125 MG TABLET.DR PO SCH ×2 (09:42→17:00)
[2018-03-29] MEDS: LACTOBACILLUS RHAMNOSUS GG 1 EACH CAP.SPRINK NG SCH ×2 (09:42→17:00)
[2018-03-29] MEDS: MULTIVITAMINS,THERAGRAN 1 UDTAB TABLET NG SCH (09:42)
[2018-03-29] MEDS: ASCORBIC ACID 500 MG TABLET NG SCH (09:42)
[2018-03-29] MEDS: MEROPENEM 1 G in IV NS 0.9% 100 ML IV SCH (12:07)
[2018-03-29 15:59] VITALS: BP 141/67
[2018-03-29] MEDS: SOD FERRIC GLUC 125 MG in IV NS 0.9% 100 ML IV SCH (16:20)
[2018-03-29] MEDS: HYDROGEL DRESSING 90 GM TUBE TP SCH (18:20)
[2018-03-29] MEDS: Z GUARD REMEDY 2 OZ OINT TP SCH (18:21)
[2018-03-29 20:00] VITALS: BP 136/54
[2018-03-29] MEDS: ENOXAPARIN SODIUM 40 MG/0.4 ML DISP.SYRIN SQ SCH (20:53)
[2018-03-29] MEDS: NORMAL SALINE FLUSH 10 ML SYR IV SCH (21:00)
[2018-03-29] MEDS: DONEPEZIL 5 MG TABLET PO SCH (21:11)
[2018-03-29] MEDS: TAMSULOSIN 0.4 MG CAP.SR.24H PO SCH (21:11)
[2018-03-29] MEDS: risperiDONE 1 MG TABLET PO SCH (21:11)
[2018-03-30] MEDS: BLOOD SUGAR DIAGNOSTIC 1 EACH STRIP IN SCH ×5 (00:46→23:53)
[2018-03-30] MEDS: INSULIN REGULAR, HUMAN 100 UNIT/ML 3 ML VIAL SQ PRN ×2 (00:49→12:13)
[2018-03-30] MEDS: IPRATROPIUM NEB FS 0.5 MG/2.5 ML AMPUL.NEB NEB SCH ×6 (03:00→23:10)
[2018-03-30] MEDS: ALBUTEROL FS 2.5 MG/0.5 ML VIAL.NEB NEB SCH ×6 (03:00→23:09)
[2018-03-30 04:00] VITALS: BP 132/56
[2018-03-30] MEDS: GLUCERNA 1.2 1,000 ML BOTTLE NG PRN (05:43)
[2018-03-30 06:41] LABS: CALCIUM, SERUM 8.5 mg/dL (8.5-10.1); CARBON DIOXIDE 32 mmol/L (21-32); CHLORIDE 100 mmol/L (98-107); CREATININE 0.8 mg/dL (0.6-1.3); GLUCOSE 108 mg/dL (74-106); POTASSIUM 3.6 mmol/L (3.5-5.1); SODIUM SERUM 137 mmol/L (136-145); UREA NITROGEN, BLOOD 17 mg/dL (7-18)
[2018-03-30 08:00] VITALS: BP_SYST 136; BP_SYST 143; BP_DIAS 50; BP_DIAS 61
[2018-03-30] MEDS: LACTOBACILLUS RHAMNOSUS GG 1 EACH CAP.SPRINK NG SCH ×2 (09:05→17:26)
[2018-03-30] MEDS: GABAPENTIN 300 MG CAPSULE PO SCH ×2 (09:05→17:26)
[2018-03-30] MEDS: DOCUSATE SODIUM LIQ 100 MG/10 ML UDC NG SCH ×2 (09:05→17:26)
[2018-03-30] MEDS: PROSOURCE / PROSTAT (PYXIS) 30 ML UDC GT SCH ×3 (09:06→17:23)
[2018-03-30] MEDS: DIVALPROEX SODIUM 125 MG TABLET.DR PO SCH ×2 (09:06→17:26)
[2018-03-30] MEDS: PANTOPRAZOLE 40 MG VIAL IV SCH (09:06)
[2018-03-30] MEDS: ASPIRIN 81 MG TAB.CHEW PO SCH (09:06)
[2018-03-30] MEDS: risperiDONE 0.25 MG TABLET PO SCH ×2 (09:06→17:26)
[2018-03-30] MEDS: MULTIVITAMINS,THERAGRAN 1 UDTAB TABLET NG SCH (09:06)
[2018-03-30] MEDS: VANCOMYCIN 0.75 GM in IV D5W 250 ML IV SCH ×2 (09:07→20:48)
[2018-03-30] MEDS: ASCORBIC ACID 500 MG TABLET NG SCH (09:07)
[2018-03-30] MEDS: HYDROGEL DRESSING 90 GM TUBE TP SCH (09:08)
[2018-03-30] MEDS: Z GUARD REMEDY 2 OZ OINT TP SCH (09:08)
[2018-03-30] MEDS: MEROPENEM 1 G in IV NS 0.9% 100 ML IV SCH ×4 (11:57→23:45)
[2018-03-30] MEDS: NORMAL SALINE FLUSH 10 ML SYR IV SCH ×2 (13:46→21:38)
[2018-03-30] MEDS: SOD FERRIC GLUC 125 MG in IV NS 0.9% 100 ML IV SCH (14:26)
[2018-03-30 16:00] VITALS: BP 142/65
[2018-03-30 20:00] VITALS: BP_SYST 134; BP_SYST 135; BP_SYST 138; BP_DIAS 43; BP_DIAS 75
[2018-03-30] MEDS: ENOXAPARIN SODIUM 40 MG/0.4 ML DISP.SYRIN SQ SCH (21:00)
[2018-03-30] MEDS: TAMSULOSIN 0.4 MG CAP.SR.24H PO SCH (21:37)
[2018-03-30] MEDS: risperiDONE 1 MG TABLET PO SCH (21:37)
[2018-03-30] MEDS: DONEPEZIL 5 MG TABLET PO SCH (21:37)
[2018-03-31] MEDS: ALBUTEROL FS 2.5 MG/0.5 ML VIAL.NEB NEB SCH ×6 (03:32→23:10)
[2018-03-31] MEDS: IPRATROPIUM NEB FS 0.5 MG/2.5 ML AMPUL.NEB NEB SCH ×6 (03:32→23:10)
[2018-03-31 04:00] VITALS: BP 141/57
[2018-03-31] MEDS: NORMAL SALINE FLUSH 10 ML SYR IV SCH ×3 (05:12→21:26)
[2018-03-31] MEDS: BLOOD SUGAR DIAGNOSTIC 1 EACH STRIP IN SCH ×4 (05:36→23:47)
[2018-03-31 06:56] LABS: INR 0.99 (0.87-1.13)
[2018-03-31 07:01] LABS: BASOPHILS % (AUTO) 0.4 % (0.0-2.0); EOSINOPHILS % (AUTO) 2.2 % (0.0-6.0); HEMATOCRIT 29 % (39-51); HEMOGLOBIN 9.3 g/dL (13.5-17.5); LYMPHOCYTES # (AUTO) 1.6 /CMM (0.8-4.8); LYMPHOCYTES % (AUTO) 20.5 % (20.0-44.0); MEAN CORPUSCULAR HGB CONC 33 g/dl (31.0-36.0); MEAN CORPUSCULAR VOLUME 86 fL (80-96); MONOCYTES # (AUTO) 0.5 /CMM (0.1-1.30); MONOCYTES % (AUTO) 6.9 % (2.0-12.0); NEUTROPHILS # (AUTO) 5.4 /CMM (1.8-8.9); PLATELET COUNT (AUTO) 393 /CMM (150-450); RDW COEFFICIENT OF VARIATION 14.6 (11.5-15.0); RED BLOOD CELL COUNT(AUTO) 3.35 MIL/uL (4.5-6.0); WHITE BLOOD COUNT (AUTO) 7.7 K/uL (4.3-11.0)
[2018-03-31 07:24] LABS: CALCIUM, SERUM 8.1 mg/dL (8.5-10.1); CARBON DIOXIDE 30 mmol/L (21-32); CHLORIDE 100 mmol/L (98-107); CREATININE 0.9 mg/dL (0.6-1.3); GLUCOSE 154 mg/dL (74-106); POTASSIUM 3.6 mmol/L (3.5-5.1); SODIUM SERUM 137 mmol/L (136-145); UREA NITROGEN, BLOOD 15 mg/dL (7-18)
[2018-03-31 08:00] VITALS: BP 154/68
[2018-03-31] MEDS: VANCOMYCIN 0.75 GM in IV D5W 250 ML IV SCH (08:40)
[2018-03-31] MEDS: PANTOPRAZOLE 40 MG VIAL IV SCH (08:40)
[2018-03-31] MEDS: LACTOBACILLUS RHAMNOSUS GG 1 EACH CAP.SPRINK NG SCH ×2 (08:44→16:23)
[2018-03-31] MEDS: ASPIRIN 81 MG TAB.CHEW PO SCH (08:44)
[2018-03-31] MEDS: DOCUSATE SODIUM LIQ 100 MG/10 ML UDC NG SCH ×2 (08:44→16:23)
[2018-03-31] MEDS: ASCORBIC ACID 500 MG TABLET NG SCH (08:44)
[2018-03-31] MEDS: MULTIVITAMINS,THERAGRAN 1 UDTAB TABLET NG SCH (08:44)
[2018-03-31] MEDS: HYDROGEL DRESSING 90 GM TUBE TP PRN (08:45)
[2018-03-31] MEDS: HYDROGEL DRESSING 90 GM TUBE TP SCH (08:45)
[2018-03-31] MEDS: DIVALPROEX SODIUM 125 MG TABLET.DR PO SCH ×2 (08:45→16:23)
[2018-03-31] MEDS: GABAPENTIN 300 MG CAPSULE PO SCH ×2 (08:45→16:23)
[2018-03-31] MEDS: risperiDONE 0.25 MG TABLET PO SCH ×2 (08:45→16:24)
[2018-03-31] MEDS: Z GUARD REMEDY 2 OZ OINT TP SCH (08:46)
[2018-03-31] MEDS: PROSOURCE / PROSTAT (PYXIS) 30 ML UDC GT SCH ×3 (08:46→16:24)
[2018-03-31] MEDS ORDERED: ETOMIDATE 2 MG/ML VIAL ONE (09:22)
[2018-03-31] MEDS: MEROPENEM 1 G in IV NS 0.9% 100 ML IV SCH ×2 (11:20→23:42)
[2018-03-31] MEDS: GLUCERNA 1.2 1,000 ML BOTTLE NG PRN (11:23)
[2018-03-31 12:00] VITALS: BP 141/56
[2018-03-31] MEDS: INSULIN REGULAR, HUMAN 100 UNIT/ML 3 ML VIAL SQ PRN ×3 (12:24→23:49)
[2018-03-31 16:00] VITALS: BP 152/59
[2018-03-31 20:00] VITALS: BP 122/50
[2018-03-31] MEDS: TAMSULOSIN 0.4 MG CAP.SR.24H PO SCH (21:19)
[2018-03-31] MEDS: DONEPEZIL 5 MG TABLET PO SCH (21:19)
[2018-03-31] MEDS: risperiDONE 1 MG TABLET PO SCH (21:19)
[2018-03-31] MEDS: ENOXAPARIN SODIUM 40 MG/0.4 ML DISP.SYRIN SQ SCH (21:20)
[2018-04-01] MEDS ORDERED: VANCOMYCIN 0.75 GM in IV NS 0.9% 250 ML IV SCH (01:00)
[2018-04-01] MEDS ORDERED: VANCOMYCIN 1 GM VIAL ONE (01:15)
[2018-04-01] MEDS: ALBUTEROL FS 2.5 MG/0.5 ML VIAL.NEB NEB SCH ×3 (03:52→11:43)
[2018-04-01] MEDS: IPRATROPIUM NEB FS 0.5 MG/2.5 ML AMPUL.NEB NEB SCH ×3 (03:53→11:43)
[2018-04-01 04:00] VITALS: BP 133/54
[2018-04-01] MEDS: BLOOD SUGAR DIAGNOSTIC 1 EACH STRIP IN SCH ×2 (05:09→12:50)
[2018-04-01] MEDS: INSULIN REGULAR, HUMAN 100 UNIT/ML 3 ML VIAL SQ PRN ×2 (05:11→14:05)
[2018-04-01] MEDS: NORMAL SALINE FLUSH 10 ML SYR IV SCH ×2 (05:13→12:50)
[2018-04-01 07:12] LABS: CALCIUM, SERUM 8.9 mg/dL (8.5-10.1); CARBON DIOXIDE 33 mmol/L (21-32); CHLORIDE 101 mmol/L (98-107); CREATININE 0.9 mg/dL (0.6-1.3); GLUCOSE 202 mg/dL (74-106); SODIUM SERUM 140 mmol/L (136-145); UREA NITROGEN, BLOOD 15 mg/dL (7-18)
[2018-04-01 08:00] VITALS: BP 108/51
[2018-04-01] MEDS: ASPIRIN 81 MG TAB.CHEW PO SCH (09:00)
[2018-04-01] MEDS: HYDROGEL DRESSING 90 GM TUBE TP SCH (09:00)
[2018-04-01] MEDS: PANTOPRAZOLE 40 MG VIAL IV SCH (09:55)
[2018-04-01] MEDS: PROSOURCE / PROSTAT (PYXIS) 30 ML UDC GT SCH ×2 (09:55→12:50)
[2018-04-01] MEDS: LACTOBACILLUS RHAMNOSUS GG 1 EACH CAP.SPRINK NG SCH (09:56)
[2018-04-01] MEDS: ASCORBIC ACID 500 MG TABLET NG SCH (09:56)
[2018-04-01] MEDS: GABAPENTIN 300 MG CAPSULE PO SCH (09:56)
[2018-04-01] MEDS: MULTIVITAMINS,THERAGRAN 1 UDTAB TABLET NG SCH (09:56)
[2018-04-01] MEDS: DOCUSATE SODIUM LIQ 100 MG/10 ML UDC NG SCH (09:56)
[2018-04-01] MEDS: DIVALPROEX SODIUM 125 MG TABLET.DR PO SCH (09:57)
[2018-04-01] MEDS: risperiDONE 0.25 MG TABLET PO SCH (09:58)
[2018-04-01] MEDS: HYDROGEL DRESSING 90 GM TUBE TP PRN (09:58)
[2018-04-01] MEDS: Z GUARD REMEDY 2 OZ OINT TP SCH (09:59)
[2018-04-01] MEDS: MEROPENEM 1 G in IV NS 0.9% 100 ML IV SCH (12:49)
== END 2018-04-01 14:35 | DRG 871 ==
LOC: ER 17:47 → ICU 20:44 → TELE-TD 03-25 16:47 → TELE1 03-26 11:15 → MEDSG1 03-26 11:28
PROVIDERS: ADMIT Internal Medicine; ATTEND Internal Medicine
PROC: 0DH63UZ Insertion of Feeding Device into Stomach, Percutaneous Approach (ICD-10-PCS; principal; 2018-03-31 08:55)
DX: A41.9 Sepsis, unspecified organism (principal); L89.153 Pressure ulcer of sacral region, stage 3; J96.01 Acute respiratory failure with hypoxia; I21.A1 Myocardial infarction type 2; N17.0 Acute kidney failure with tubular necrosis; J69.0 Pneumonitis due to inhalation of food and vomit; J15.6 Pneumonia due to other Gram-negative bacteria; E44.0 Moderate protein-calorie malnutrition; G93.40 Encephalopathy, unspecified; I50.32 Chronic diastolic (congestive) heart failure; N39.0 Urinary tract infection, site not specified; E87.2 Acidosis; B96.20 Unspecified Escherichia coli [E. coli] as the cause of diseases classified elsewhere; D63.8 Anemia in other chronic diseases classified elsewhere; E78.5 Hyperlipidemia, unspecified; E83.42 Hypomagnesemia; E86.0 Dehydration; F09 Unspecified mental disorder due to known physiological condition; I25.10 Atherosclerotic heart disease of native coronary artery without angina pectoris; K21.9 Gastro-esophageal reflux disease without esophagitis; Z87.891 Personal history of nicotine dependence; R65.20 Severe sepsis without septic shock; Z79.4 Long term (current) use of insulin; I11.0 Hypertensive heart disease with heart failure; E11.9 Type 2 diabetes mellitus without complications; F32.9 Major depressive disorder, single episode, unspecified; N40.1 Benign prostatic hyperplasia with lower urinary tract symptoms; F03.90 Unspecified dementia, unspecified severity, without behavioral disturbance, psychotic disturbance, mood disturbance, and anxiety; E88.09 Other disorders of plasma-protein metabolism, not elsewhere classified; Z68.25 Body mass index [BMI] 25.0-25.9, adult; L89.620 Pressure ulcer of left heel, unstageable; L89.610 Pressure ulcer of right heel, unstageable; D50.9 Iron deficiency anemia, unspecified; R13.10 Dysphagia, unspecified; Y93.9 Activity, unspecified; Y92.129 Unspecified place in nursing home as the place of occurrence of the external cause; Z16.12 Extended spectrum beta lactamase (ESBL) resistance; E87.6 Hypokalemia; R31.9 Hematuria, unspecified; J45.909 Unspecified asthma, uncomplicated; Z87.01 Personal history of pneumonia (recurrent)
CPT/HCPCS: 31720; 36415; 36600; 71045-TC; 74018; 74230-TC; 80048-TC; 80053-TC; 80076-TC; 80202-TC; 81000-TC; 82728-TC; 82803-TC; 82962-TC; 83540-TC; 83605-TC; 83735-TC; 84100-TC; 84439-TC; 84443-TC; 84484-TC; 85025-TC; 85610-TC; 85730-TC; 87040-TC; 87081-TC; 87086-TC; 87186-TC; 92611-TC; 93307-TC; 94760-TC; A4216; A4606; A6248; A6402; A6403; C9113; J1650; J1815; J2185; J2543; J2916; J3370; J3475; J3480; J3490; J7030; J7040; J7050; J7060; Z7610